=== PATIENT | male | born 1990 | race African-American/Black ===

== ENCOUNTER 2021-06-06 15:44 | Inpatient (IN) | payer OTHER ==
[2021-06-06] MEDS ORDERED: hydrOXYzine PAMOATE 25 MG CAPSULE (FP) PO PRN (17:34)
[2021-06-06] MEDS ORDERED: MENTHOL/PHENOL 1 EACH UD MM PRN (17:34)
[2021-06-06] MEDS ORDERED: IBUPROFEN 400 MG TABLET (FP) PO PRN (17:34)
[2021-06-06] MEDS ORDERED: ACETAMINOPHEN 325 MG TABLET (FP) PO PRN ×2 (17:34)
[2021-06-06] MEDS ORDERED: DICYCLOMINE HCL 10 MG CAPSULE PO PRN (17:34)
[2021-06-06] MEDS ORDERED: LOPERAMIDE HCL 2 MG CAPSULE PO PRN (17:34)
[2021-06-06] MEDS ORDERED: BISMUTH SUBSALICYLATE 524 MG/30 ML PO PRN (17:34)
[2021-06-06] MEDS ORDERED: MELATONIN 5 MG TABLETS PO PRN (17:34)
[2021-06-06] MEDS ORDERED: MAGNESIUM HYDROX 2400MG/30ML ORAL SUSPENSION 30 ML CUP PO PRN (17:34)
[2021-06-06] MEDS ORDERED: MAGNESIUM CITRATE 300 ML BOTTLE PO PRN (17:34)
[2021-06-06] MEDS ORDERED: ONDANSETRON *ODT* 4 MG TABLET SL PRN (17:34)
[2021-06-06] MEDS ORDERED: diazePAM 5 MG TABLET PO PRN (17:37)
[2021-06-06 17:45] VITALS: BMI 21.6
[2021-06-06] MEDS ORDERED: ACETAMINOPHEN 325 MG TABLET (FP) ONE (19:01)
[2021-06-06] MEDS: MAG HYDROX/AL HYDROX/SIMETH 30 ML UNIT-DOSE CUP PO PRN (20:15)
[2021-06-06] MEDS ORDERED: THIAMINE HCL 100 MG TABLET (FP) PO SCH (22:00)
[2021-06-06] MEDS: METHOCARBAMOL 500 MG TABLET PO PRN (22:27)
[2021-06-06] MEDS: diazePAM 5 MG TABLET PO SCH (22:27)
[2021-06-07] MEDS: diazePAM 5 MG TABLET PO SCH ×2 (06:04→10:35)
[2021-06-07] MEDS ORDERED: PNEUMOC 13-VAL CONJ-DIP CRM/PF 0.5 ML DISP.SYRIN IM ONE (07:00)
[2021-06-07 09:02] VITALS: TEMP 98
[2021-06-07] MEDS: METHOCARBAMOL 500 MG TABLET PO PRN (09:24)
[2021-06-07] MEDS: MAG HYDROX/AL HYDROX/SIMETH 30 ML UNIT-DOSE CUP PO PRN (09:25)
[2021-06-07 09:47] LABS: HEMATOCRIT 23.5 % (35.4-49); HEMOGLOBIN 7.7 GM/dL (11.7-16.9); MCH 25.6 pg (25.7-33.7); MCHC 32.6 g/dl (32.0-35.9); MEAN CELL VOLUME 78.3 fl (80-96); MEAN PLT VOLUME 7.3 fl (7.5-11.1); PLATELET COUNT 297 10^3/uL (134-434); WHITE BLOOD COUNT 2.4 K/mm3 (4.0-10.0)
[2021-06-07 09:48] LABS: CALCIUM 8.5 mg/dL (8.5-10.1)
[2021-06-07 09:49] LABS: ALBUMIN 3.4 g/dl (3.4-5.0); BLOOD UREA NITROGEN 11.9 mg/dL (7-18)
[2021-06-07 09:52] LABS: CREATININE 1.1 mg/dL (0.55-1.3)
[2021-06-07 09:53] LABS: TOT PROT 6.7 g/dl (6.4-8.2)
[2021-06-07 09:54] LABS: BILIRUBIN,TOTAL 0.4 mg/dL (0.2-1)
[2021-06-07] MEDS ORDERED: PRENATAL VITAMINS W/ FOLIC ACID TABLET (FP) PO SCH (10:00)
[2021-06-07 13:34] VITALS: BP 135/97; PULSE 101
[2021-06-08] MEDS ORDERED: diazePAM 5 MG TABLET PO SCH (06:00)
[2021-06-09] MEDS ORDERED: diazePAM 5 MG TABLET PO SCH (06:00)
[2021-06-10] MEDS ORDERED: diazePAM 5 MG TABLET PO ONE (06:00)
== END 2021-06-07 14:00 | disposition left against medical advice (07) | DRG 770 ==
LOC: YASAS 15:44 → Y6N 19:10
PROVIDERS: ADMIT Allergy & Immunology; ATTEND Allergy & Immunology
PROC: HZ2ZZZZ Detoxification Services for Substance Abuse Treatment (ICD-10-PCS; principal; 2021-06-06)
DX: F10.230 Alcohol dependence with withdrawal, uncomplicated (principal); F10.220 Alcohol dependence with intoxication, uncomplicated; Z21 Asymptomatic human immunodeficiency virus [HIV] infection status; Z87.19 Personal history of other diseases of the digestive system
CPT/HCPCS: 36415; 80053; 85027; 86780; 87811; C9803-CS; Q0162; U0003; U0005

== ENCOUNTER 2022-05-11 13:23 | Inpatient (IN) | payer OTHER ==
[2022-05-11 15:03] VITALS: BMI 22.3
[2022-05-11] MEDS ORDERED: BISMUTH SUBSALICYLATE 524 MG/30 ML PO PRN (16:48)
[2022-05-11] MEDS ORDERED: DICYCLOMINE HCL 10 MG CAPSULE PO PRN (16:48)
[2022-05-11] MEDS ORDERED: NALOXONE HCL (KLOXXADO) 8 MG SPRAY NS PRN (16:48)
[2022-05-11] MEDS ORDERED: MAG HYDROX/AL HYDROX/SIMETH 30 ML UNIT-DOSE CUP PO PRN (16:48)
[2022-05-11] MEDS ORDERED: MAGNESIUM HYDROX 2400MG/30ML ORAL SUSPENSION 30 ML CUP PO PRN (16:48)
[2022-05-11] MEDS ORDERED: chlordiazePOXIDE HCL 25 MG CAPSULE PO PRN (16:48)
[2022-05-11] MEDS ORDERED: BENZOCAINE/MENTHOL (CHLORASEPTIC ) LOZENGE MM PRN (16:48)
[2022-05-11] MEDS ORDERED: ACETAMINOPHEN 325 MG TABLET (FP) PO PRN ×2 (16:48)
[2022-05-11] MEDS ORDERED: IBUPROFEN 400 MG TABLET (FP) PO PRN (16:48)
[2022-05-11] MEDS ORDERED: ONDANSETRON *ODT* 4 MG TABLET SL PRN (16:48)
[2022-05-11] MEDS ORDERED: POLYETHYLENE GLYCOL (HEALTHYLAX) 3350 17 GM PACKET PO PRN (16:48)
[2022-05-11] MEDS ORDERED: LOPERAMIDE HCL 2 MG CAPSULE PO PRN (16:48)
[2022-05-11] MEDS: FOLIC ACID 1 MG TABLET (FP) PO SCH (18:00)
[2022-05-11] MEDS: chlordiazePOXIDE HCL 25 MG CAPSULE PO SCH ×2 (18:00→22:12)
[2022-05-11] MEDS: PRENATAL VITAMINS W/ FOLIC ACID TABLET (FP) PO SCH (18:00)
[2022-05-11] MEDS: THIAMINE HCL 100 MG TABLET (FP) PO SCH ×2 (18:00→22:12)
[2022-05-11] MEDS: MELATONIN 5 MG TABLETS PO SCH (22:11)
[2022-05-11] MEDS: FAMOTIDINE 20 MG TABLET PO SCH (22:11)
[2022-05-11] MEDS: levETIRAcetam 500 MG TABLET (FP) PO SCH (22:11)
[2022-05-11] MEDS: PRAZOSIN HCL 1 MG CAPSULE PO SCH (22:11)
[2022-05-11] MEDS: CHLORHEXIDINE GLUCONATE 0.12% 15ML CUP MM SCH (22:11)
[2022-05-12] MEDS: IBUPROFEN 600 MG TABLET (FP) PO PRN ×2 (05:22→13:31)
[2022-05-12] MEDS: chlordiazePOXIDE HCL 25 MG CAPSULE PO SCH ×4 (05:23→22:54)
[2022-05-12] MEDS ORDERED: PANTOPRAZOLE 40 MG TABLET PO SCH (10:00)
[2022-05-12] MEDS ORDERED: ERGOCALCIFEROL (VIT D2) 50,000 UNIT (1.25 MG) CAPSULE PO SCH (10:00)
[2022-05-12] MEDS ORDERED: PATIENT'S OWN MEDICATION (NON-FORMULARY) (Omeprazole [Omeprazole] 20 MG Tablet.Dr) PO SCH (10:00)
[2022-05-12] MEDS: levETIRAcetam 500 MG TABLET (FP) PO SCH ×2 (10:27→22:53)
[2022-05-12] MEDS: BICTEGRAV/EMTRICIT/TENOFOV (BIKTARVY) 50-200-25 MG TABLET PO SCH (10:27)
[2022-05-12] MEDS: PRENATAL VITAMINS W/ FOLIC ACID TABLET (FP) PO SCH (10:27)
[2022-05-12] MEDS: FAMOTIDINE 20 MG TABLET PO SCH ×2 (10:28→22:53)
[2022-05-12] MEDS: PANTOPRAZOLE 40 MG TABLET PO SCH (10:28)
[2022-05-12] MEDS: THIAMINE HCL 100 MG TABLET (FP) PO SCH ×2 (10:28→22:53)
[2022-05-12] MEDS: FOLIC ACID 1 MG TABLET (FP) PO SCH (10:28)
[2022-05-12] MEDS: hydrOXYzine PAMOATE 25 MG CAPSULE (FP) PO PRN (10:35)
[2022-05-12] MEDS: METHOCARBAMOL 500 MG TABLET PO PRN ×2 (10:35→22:59)
[2022-05-12] MEDS: CHLORHEXIDINE GLUCONATE 0.12% 15ML CUP MM SCH ×2 (10:53→22:53)
[2022-05-12 11:30] LABS: HEMATOCRIT 28.3 % (35.4-49); HEMOGLOBIN 8.9 GM/dL (11.7-16.9); MCHC 31.4 g/dl (32.0-35.9); MEAN CELL VOLUME 76.4 fl (80-96); MEAN PLT VOLUME 8.1 fl (7.5-11.1); PLATELET COUNT 203 10^3/uL (134-434); RDW 24.2 % (11.9-15.9); WHITE BLOOD COUNT 2.5 K/mm3 (4.0-10.0)
[2022-05-12 12:28] LABS: ALBUMIN 3.2 g/dl (3.4-5.0); BLOOD UREA NITROGEN 10.4 mg/dL (7-18); CALCIUM 8.7 mg/dL (8.5-10.1)
[2022-05-12 12:33] LABS: BILIRUBIN,TOTAL 0.4 mg/dL (0.2-1); TOT PROT 6.9 g/dl (6.4-8.2)
[2022-05-12] MEDS: HYDROCORTISONE 2.5% TOPICAL CREAM 30 GM TUBE RC SCH (14:27)
[2022-05-12] MEDS: FERROUS SO4 325 MG TABLET (FP) PO SCH (17:23)
[2022-05-12] MEDS: MELATONIN 5 MG TABLETS PO SCH (22:52)
[2022-05-12] MEDS: PRAZOSIN HCL 1 MG CAPSULE PO SCH (22:53)
[2022-05-13] MEDS: hydrOXYzine PAMOATE 25 MG CAPSULE (FP) PO PRN (00:18)
[2022-05-13] MEDS: chlordiazePOXIDE HCL 25 MG CAPSULE PO SCH ×2 (05:30→10:51)
[2022-05-13] MEDS: FERROUS SO4 325 MG TABLET (FP) PO SCH (07:33)
[2022-05-13] MEDS: PRENATAL VITAMINS W/ FOLIC ACID TABLET (FP) PO SCH (09:00)
[2022-05-13] MEDS: FOLIC ACID 1 MG TABLET (FP) PO SCH (09:01)
[2022-05-13] MEDS: BICTEGRAV/EMTRICIT/TENOFOV (BIKTARVY) 50-200-25 MG TABLET PO SCH (09:01)
[2022-05-13] MEDS: PANTOPRAZOLE 40 MG TABLET PO SCH (09:01)
[2022-05-13] MEDS: levETIRAcetam 500 MG TABLET (FP) PO SCH (09:01)
[2022-05-13] MEDS: HYDROCORTISONE 2.5% TOPICAL CREAM 30 GM TUBE RC SCH (09:01)
[2022-05-13] MEDS: FAMOTIDINE 20 MG TABLET PO SCH (09:01)
[2022-05-13] MEDS: CHLORHEXIDINE GLUCONATE 0.12% 15ML CUP MM SCH (09:01)
[2022-05-13] MEDS: THIAMINE HCL 100 MG TABLET (FP) PO SCH (09:03)
[2022-05-13 09:51] VITALS: BP 131/74; PULSE 80; RESP 18; TEMP 97.3
[2022-05-13] MEDS ORDERED: FLUoxetine HCL 20 MG CAPSULE PO SCH (10:00)
[2022-05-14] MEDS ORDERED: chlordiazePOXIDE HCL 10 MG CAPSULE PO PRN
[2022-05-14] MEDS ORDERED: chlordiazePOXIDE HCL 10 MG CAPSULE PO SCH (05:00)
[2022-05-15] MEDS ORDERED: chlordiazePOXIDE HCL 10 MG CAPSULE PO SCH (05:00)
[2022-05-16] MEDS ORDERED: chlordiazePOXIDE HCL 10 MG CAPSULE PO ONE (05:00)
== END 2022-05-13 09:06 | disposition left against medical advice (07) | DRG 770 ==
LOC: YASAS 13:23 → Y3N 17:28
PROVIDERS: ADMIT Allergy & Immunology; ATTEND Surgery
PROC: HZ2ZZZZ Detoxification Services for Substance Abuse Treatment (ICD-10-PCS; principal; 2022-05-12)
DX: F10.230 Alcohol dependence with withdrawal, uncomplicated (principal); F19.24 Other psychoactive substance dependence with psychoactive substance-induced mood disorder; F43.10 Post-traumatic stress disorder, unspecified; F32.9 Major depressive disorder, single episode, unspecified; Z21 Asymptomatic human immunodeficiency virus [HIV] infection status; D57.3 Sickle-cell trait; K64.9 Unspecified hemorrhoids; Z86.69 Personal history of other diseases of the nervous system and sense organs; Z59.01 Sheltered homelessness; Z88.8 Allergy status to other drugs, medicaments and biological substances; Z88.6 Allergy status to analgesic agent
CPT/HCPCS: 36415; 80053; 85027; 86780; 87811; C9803-CS; U0003; U0005

== ENCOUNTER 2022-06-07 16:10 | Inpatient (IN) | payer OTHER ==
[2022-06-07 16:34] VITALS: BMI 22.6
[2022-06-07] MEDS ORDERED: NALOXONE HCL (KLOXXADO) 8 MG SPRAY NS PRN (17:51)
[2022-06-07] MEDS ORDERED: BENZONATATE 200 MG CAPSULE PO PRN (17:51)
[2022-06-07] MEDS ORDERED: guaiFENesin 600 MG TABLET.ER (FP) PO PRN (17:51)
[2022-06-07] MEDS ORDERED: MAG HYDROX/AL HYDROX/SIMETH 30 ML UNIT-DOSE CUP PO PRN (17:51)
[2022-06-07] MEDS ORDERED: IBUPROFEN 400 MG TABLET (FP) PO PRN (17:51)
[2022-06-07] MEDS ORDERED: MAGNESIUM HYDROX 2400MG/30ML ORAL SUSPENSION 30 ML CUP PO PRN (17:51)
[2022-06-07] MEDS ORDERED: BENZOCAINE/MENTHOL (CHLORASEPTIC ) LOZENGE MM PRN (17:51)
[2022-06-07] MEDS ORDERED: BISMUTH SUBSALICYLATE 524 MG/30 ML PO PRN (17:51)
[2022-06-07] MEDS ORDERED: IBUPROFEN 600 MG TABLET (FP) PO PRN (17:51)
[2022-06-07] MEDS ORDERED: LOPERAMIDE HCL 2 MG CAPSULE PO PRN (17:51)
[2022-06-07] MEDS ORDERED: NICOTINE 10 MG CARTRIDGE (INHALER) IH PRN (17:51)
[2022-06-07] MEDS ORDERED: NALOXONE HCL 0.4 MG/ML VIAL IM PRN (17:51)
[2022-06-07] MEDS ORDERED: POLYETHYLENE GLYCOL (HEALTHYLAX) 3350 17 GM PACKET PO PRN (17:51)
[2022-06-07] MEDS: hydrOXYzine PAMOATE 25 MG CAPSULE (FP) PO PRN (18:59)
[2022-06-07] MEDS: DICYCLOMINE HCL 10 MG CAPSULE PO PRN (18:59)
[2022-06-07] MEDS: PRENATAL VITAMINS W/ FOLIC ACID TABLET (FP) PO SCH (19:09)
[2022-06-07] MEDS: MELATONIN 5 MG TABLETS PO SCH (22:10)
[2022-06-07] MEDS: THIAMINE HCL 100 MG TABLET (FP) PO SCH (22:10)
[2022-06-07] MEDS: NAPROXEN 500 MG TABLET PO SCH (22:10)
[2022-06-07] MEDS: METHOCARBAMOL 500 MG TABLET PO PRN (22:12)
[2022-06-08] MEDS: hydrOXYzine PAMOATE 25 MG CAPSULE (FP) PO PRN ×3 (05:32→22:38)
[2022-06-08] MEDS ORDERED: BICTEGRAV/EMTRICIT/TENOFOV (BIKTARVY) 50-200-25 MG TABLET PO SCH (10:00)
[2022-06-08] MEDS ORDERED: CHLORHEXIDINE GLUCONATE 0.12% 15ML CUP MM SCH (10:00)
[2022-06-08] MEDS: NAPROXEN 500 MG TABLET PO SCH ×2 (10:23→22:34)
[2022-06-08] MEDS: PRENATAL VITAMINS W/ FOLIC ACID TABLET (FP) PO SCH (10:23)
[2022-06-08] MEDS: LORazepam 2 MG TABLET PO SCH ×3 (10:24→22:33)
[2022-06-08] MEDS: FAMOTIDINE 20 MG TABLET PO SCH ×2 (10:24→22:34)
[2022-06-08] MEDS: PANTOPRAZOLE 40 MG TABLET PO SCH ×2 (10:24→10:25)
[2022-06-08] MEDS: levETIRAcetam 500 MG TABLET (FP) PO SCH ×2 (10:27→22:34)
[2022-06-08] MEDS: CHLORHEXIDINE GLUCONATE 0.12% 15ML CUP MM SCH ×2 (12:12→22:34)
[2022-06-08] MEDS: BICTEGRAV/EMTRICIT/TENOFOV (BIKTARVY) 50-200-25 MG TABLET PO SCH (12:13)
[2022-06-08] MEDS: SUCRALFATE 1 GM TABLET (FP) PO SCH ×2 (12:13→17:47)
[2022-06-08] MEDS: ONDANSETRON *ODT* 4 MG TABLET SL PRN (21:01)
[2022-06-08] MEDS ORDERED: PRAZOSIN HCL 2 MG CAPSULE PO SCH (22:00)
[2022-06-08] MEDS: THIAMINE HCL 100 MG TABLET (FP) PO SCH (22:34)
[2022-06-08] MEDS: MELATONIN 5 MG TABLETS PO SCH (22:34)
[2022-06-09] MEDS: LORazepam 1 MG TABLET PO PRN (01:26)
[2022-06-09] MEDS: METHOCARBAMOL 500 MG TABLET PO PRN ×3 (01:26→22:32)
[2022-06-09] MEDS: LORazepam 2 MG TABLET PO SCH ×4 (05:16→22:32)
[2022-06-09] MEDS: BICTEGRAV/EMTRICIT/TENOFOV (BIKTARVY) 50-200-25 MG TABLET PO SCH (07:17)
[2022-06-09] MEDS: SUCRALFATE 1 GM TABLET (FP) PO SCH ×3 (07:18→17:17)
[2022-06-09] MEDS: NAPROXEN 500 MG TABLET PO SCH (10:23)
[2022-06-09] MEDS: PRENATAL VITAMINS W/ FOLIC ACID TABLET (FP) PO SCH (10:23)
[2022-06-09] MEDS: FAMOTIDINE 20 MG TABLET PO SCH (10:23)
[2022-06-09] MEDS: levETIRAcetam 500 MG TABLET (FP) PO SCH ×2 (10:23→22:29)
[2022-06-09] MEDS: PANTOPRAZOLE 40 MG TABLET PO SCH ×2 (10:24→10:26)
[2022-06-09] MEDS: FLUoxetine HCL 20 MG CAPSULE PO SCH (10:25)
[2022-06-09] MEDS: ONDANSETRON *ODT* 4 MG TABLET SL PRN (10:27)
[2022-06-09] MEDS: hydrOXYzine PAMOATE 25 MG CAPSULE (FP) PO PRN ×2 (10:27→22:32)
[2022-06-09] MEDS: CHLORHEXIDINE GLUCONATE 0.12% 15ML CUP MM SCH ×2 (10:28→22:36)
[2022-06-09] MEDS ORDERED: NAPROXEN 500 MG TABLET PO ONE (16:15)
[2022-06-09] MEDS: MELATONIN 5 MG TABLETS PO SCH (22:29)
[2022-06-09] MEDS: PRAZOSIN HCL 1 MG CAPSULE PO SCH (22:30)
[2022-06-09] MEDS: THIAMINE HCL 100 MG TABLET (FP) PO SCH (22:30)
[2022-06-10] MEDS: LORazepam 1 MG TABLET PO PRN (02:09)
[2022-06-10] MEDS: LORazepam 1 MG TABLET PO SCH ×4 (05:54→22:12)
[2022-06-10] MEDS: SUCRALFATE 1 GM TABLET (FP) PO SCH ×3 (07:30→16:31)
[2022-06-10] MEDS: BICTEGRAV/EMTRICIT/TENOFOV (BIKTARVY) 50-200-25 MG TABLET PO SCH (07:31)
[2022-06-10] MEDS: FLUoxetine HCL 20 MG CAPSULE PO SCH (10:18)
[2022-06-10] MEDS: levETIRAcetam 500 MG TABLET (FP) PO SCH ×2 (10:18→22:12)
[2022-06-10] MEDS: PRENATAL VITAMINS W/ FOLIC ACID TABLET (FP) PO SCH (10:18)
[2022-06-10] MEDS: PANTOPRAZOLE 40 MG TABLET PO SCH (10:18)
[2022-06-10] MEDS: CHLORHEXIDINE GLUCONATE 0.12% 15ML CUP MM SCH ×2 (10:18→22:13)
[2022-06-10] MEDS: NAPROXEN 500 MG TABLET PO SCH ×2 (10:18→22:12)
[2022-06-10] MEDS: hydrOXYzine PAMOATE 25 MG CAPSULE (FP) PO PRN ×2 (10:21→18:47)
[2022-06-10] MEDS: METHOCARBAMOL 500 MG TABLET PO PRN (17:39)
[2022-06-10] MEDS: DICYCLOMINE HCL 10 MG CAPSULE PO PRN (17:43)
[2022-06-10] MEDS: THIAMINE HCL 100 MG TABLET (FP) PO SCH (22:12)
[2022-06-10] MEDS: MELATONIN 5 MG TABLETS PO SCH (22:12)
[2022-06-10] MEDS: PRAZOSIN HCL 1 MG CAPSULE PO SCH (22:12)
[2022-06-11] MEDS ORDERED: LORazepam 0.5 MG TABLET PO PRN
[2022-06-11] MEDS: LORazepam 0.5 MG TABLET PO SCH ×2 (05:39→10:21)
[2022-06-11] MEDS: hydrOXYzine PAMOATE 25 MG CAPSULE (FP) PO PRN (05:40)
[2022-06-11 06:41] VITALS: TEMP 98.2
[2022-06-11] MEDS: SUCRALFATE 1 GM TABLET (FP) PO SCH ×2 (07:12→11:53)
[2022-06-11] MEDS: BICTEGRAV/EMTRICIT/TENOFOV (BIKTARVY) 50-200-25 MG TABLET PO SCH (07:12)
[2022-06-11 09:42] VITALS: BP 123/82; PULSE 68; RESP 18
[2022-06-11] MEDS: levETIRAcetam 500 MG TABLET (FP) PO SCH (10:21)
[2022-06-11] MEDS: FLUoxetine HCL 20 MG CAPSULE PO SCH (10:21)
[2022-06-11] MEDS: NAPROXEN 500 MG TABLET PO SCH (10:21)
[2022-06-11] MEDS: PANTOPRAZOLE 40 MG TABLET PO SCH (10:22)
[2022-06-11] MEDS: PRENATAL VITAMINS W/ FOLIC ACID TABLET (FP) PO SCH (10:22)
[2022-06-11] MEDS: CHLORHEXIDINE GLUCONATE 0.12% 15ML CUP MM SCH (10:22)
[2022-06-11] MEDS ORDERED: cloNIDine HCL 0.1 MG TABLET PO PRN (11:40)
[2022-06-12] MEDS ORDERED: LORazepam 0.5 MG TABLET PO ONE (05:00)
== END 2022-06-11 11:58 | disposition left against medical advice (07) | DRG 770 ==
LOC: YASAS 16:10 → Y3N 18:11
PROVIDERS: ADMIT Allergy & Immunology; ATTEND Surgery
PROC: HZ2ZZZZ Detoxification Services for Substance Abuse Treatment (ICD-10-PCS; principal; 2022-06-07)
DX: F10.230 Alcohol dependence with withdrawal, uncomplicated (principal); F19.24 Other psychoactive substance dependence with psychoactive substance-induced mood disorder; F43.10 Post-traumatic stress disorder, unspecified; Z21 Asymptomatic human immunodeficiency virus [HIV] infection status; G40.509 Epileptic seizures related to external causes, not intractable, without status epilepticus; K21.9 Gastro-esophageal reflux disease without esophagitis; Z87.81 Personal history of (healed) traumatic fracture; Z88.8 Allergy status to other drugs, medicaments and biological substances; Z88.6 Allergy status to analgesic agent
CPT/HCPCS: 87811; C9803-CS; Q0162; U0003; U0005

== ENCOUNTER 2022-09-15 19:53 | Inpatient (IN) | payer OTHER ==
[2022-09-15 20:17] VITALS: BMI 22.4
[2022-09-15] MEDS ORDERED: BENZONATATE 200 MG CAPSULE PO PRN (21:29)
[2022-09-15] MEDS ORDERED: BISMUTH SUBSALICYLATE 524 MG/30 ML PO PRN (21:29)
[2022-09-15] MEDS ORDERED: MAG HYDROX/AL HYDROX/SIMETH 30 ML UNIT-DOSE CUP PO PRN (21:29)
[2022-09-15] MEDS ORDERED: LOPERAMIDE HCL 2 MG CAPSULE PO PRN (21:29)
[2022-09-15] MEDS ORDERED: guaiFENesin 600 MG TABLET.ER (FP) PO PRN (21:29)
[2022-09-15] MEDS ORDERED: chlordiazePOXIDE HCL 25 MG CAPSULE PO PRN (21:29)
[2022-09-15] MEDS ORDERED: POLYETHYLENE GLYCOL (HEALTHYLAX) 3350 17 GM PACKET PO PRN (21:29)
[2022-09-15] MEDS ORDERED: DICYCLOMINE HCL 10 MG CAPSULE PO PRN (21:29)
[2022-09-15] MEDS ORDERED: ACETAMINOPHEN 325 MG TABLET (FP) PO PRN (21:29)
[2022-09-15] MEDS ORDERED: IBUPROFEN 400 MG TABLET (FP) PO PRN (21:29)
[2022-09-15] MEDS ORDERED: IBUPROFEN 600 MG TABLET (FP) PO PRN (21:29)
[2022-09-15] MEDS ORDERED: METHOCARBAMOL 500 MG TABLET PO PRN (21:29)
[2022-09-15] MEDS ORDERED: MAGNESIUM HYDROX 2400MG/30ML ORAL SUSPENSION 30 ML CUP PO PRN (21:29)
[2022-09-15] MEDS ORDERED: ONDANSETRON *ODT* 4 MG TABLET SL PRN (21:29)
[2022-09-15] MEDS ORDERED: NALOXONE HCL 0.4 MG/ML VIAL IM PRN (21:29)
[2022-09-15] MEDS ORDERED: NALOXONE HCL (KLOXXADO) 8 MG SPRAY NS PRN (21:29)
[2022-09-15] MEDS ORDERED: MELATONIN 5 MG TABLETS PO SCH (22:00)
[2022-09-15] MEDS ORDERED: chlordiazePOXIDE HCL 25 MG CAPSULE ONE (22:12)
[2022-09-15] MEDS: THIAMINE HCL 100 MG TABLET (FP) PO SCH (22:19)
[2022-09-15] MEDS: chlordiazePOXIDE HCL 25 MG CAPSULE PO SCH (22:19)
[2022-09-16] MEDS: chlordiazePOXIDE HCL 25 MG CAPSULE PO SCH ×4 (05:36→22:45)
[2022-09-16] MEDS: FERROUS SO4 325 MG TABLET (FP) PO SCH ×3 (07:16→17:52)
[2022-09-16] MEDS ORDERED: PATIENT'S OWN MEDICATION (NON-FORMULARY) (Omeprazole [Omeprazole] 20 MG Tablet.Dr) PO SCH (10:00)
[2022-09-16] MEDS ORDERED: THIAMINE HCL 100 MG TABLET (FP) PO SCH (10:00)
[2022-09-16] MEDS: CALAMINE 8% TOPICAL LOTION 177 ML BOTTLE TP SCH ×4 (10:36→22:50)
[2022-09-16] MEDS: levETIRAcetam 250 MG TABLET PO SCH ×2 (10:37→22:44)
[2022-09-16] MEDS: BICTEGRAV/EMTRICIT/TENOFOV (BIKTARVY) 50-200-25 MG TABLET PO SCH (10:37)
[2022-09-16] MEDS: FOLIC ACID 1 MG TABLET (FP) PO SCH (10:37)
[2022-09-16] MEDS: PRENATAL VITAMINS W/ FOLIC ACID TABLET (FP) PO SCH (10:37)
[2022-09-16] MEDS: CHLORHEXIDINE GLUCONATE 0.12% 15ML CUP MM SCH ×2 (10:38→22:50)
[2022-09-16] MEDS: SUCRALFATE 1 GM TABLET (FP) PO SCH ×3 (10:38→17:52)
[2022-09-16] MEDS: AMOXICILLIN 250 MG CAPSULE PO SCH ×2 (10:38→22:44)
[2022-09-16] MEDS: MULTIVITAMINS THER W-MINERALS COMBO TABLET (FP) PO SCH (10:39)
[2022-09-16] MEDS: BENZOCAINE/MENTHOL (CHLORASEPTIC ) LOZENGE MM PRN ×3 (10:46→22:52)
[2022-09-16] MEDS: HYDROCORTISONE 2.5% TOPICAL CREAM 30 GM TUBE TP SCH ×2 (10:51→22:50)
[2022-09-16] MEDS: FAMOTIDINE 20 MG TABLET PO SCH ×2 (13:42→22:44)
[2022-09-16] MEDS: FLUoxetine HCL 20 MG CAPSULE PO SCH (13:43)
[2022-09-16] MEDS ORDERED: BENZOCAINE 20 % GEL TUBE MM PRN (20:43)
[2022-09-16] MEDS ORDERED: PRAZOSIN HCL 1 MG CAPSULE PO SCH ×2 (22:00)
[2022-09-16] MEDS ORDERED: PATIENT'S OWN MEDICATION (NON-FORMULARY) (Prazosin Hcl 2 MG Capsule) PO SCH (22:00)
[2022-09-16] MEDS ORDERED: QUEtiapine FUMARATE 200 MG TABLET PO SCH (22:00)
[2022-09-16] MEDS: THIAMINE HCL 100 MG TABLET (FP) PO SCH (22:45)
[2022-09-17] MEDS: chlordiazePOXIDE HCL 25 MG CAPSULE PO SCH ×2 (05:32→10:59)
[2022-09-17] MEDS: BENZOCAINE/MENTHOL (CHLORASEPTIC ) LOZENGE MM PRN (05:33)
[2022-09-17] MEDS: FERROUS SO4 325 MG TABLET (FP) PO SCH ×2 (07:33→11:13)
[2022-09-17] MEDS: SUCRALFATE 1 GM TABLET (FP) PO SCH ×2 (07:33→11:13)
[2022-09-17 09:39] VITALS: RESP 18
[2022-09-17] MEDS: PANTOPRAZOLE 40 MG TABLET PO SCH ×2 (09:56→10:53)
[2022-09-17] MEDS ORDERED: ERGOCALCIFEROL (VIT D2) 50,000 UNIT (1.25 MG) CAPSULE PO SCH (10:00)
[2022-09-17] MEDS ORDERED: NALTREXONE HCL 50 MG TABLET PO SCH (10:00)
[2022-09-17] MEDS: levETIRAcetam 250 MG TABLET PO SCH (10:53)
[2022-09-17] MEDS: FOLIC ACID 1 MG TABLET (FP) PO SCH (10:53)
[2022-09-17] MEDS: FLUoxetine HCL 20 MG CAPSULE PO SCH (10:53)
[2022-09-17] MEDS: FAMOTIDINE 20 MG TABLET PO SCH (10:53)
[2022-09-17] MEDS: AMOXICILLIN 250 MG CAPSULE PO SCH (10:55)
[2022-09-17] MEDS: BICTEGRAV/EMTRICIT/TENOFOV (BIKTARVY) 50-200-25 MG TABLET PO SCH (10:56)
[2022-09-17] MEDS: HYDROCORTISONE 2.5% TOPICAL CREAM 30 GM TUBE TP SCH (10:57)
[2022-09-17] MEDS: PRENATAL VITAMINS W/ FOLIC ACID TABLET (FP) PO SCH (10:58)
[2022-09-17] MEDS: MULTIVITAMINS THER W-MINERALS COMBO TABLET (FP) PO SCH (10:58)
[2022-09-17] MEDS: CALAMINE 8% TOPICAL LOTION 177 ML BOTTLE TP SCH ×2 (11:00→14:01)
[2022-09-17 13:32] VITALS: BP 96/60; PULSE 109; TEMP 97.3
[2022-09-17] MEDS ORDERED: HYDROCORTISONE 0.5% TOPICAL CREAM 30 GM TUBE TP SCH (16:00)
[2022-09-18] MEDS ORDERED: chlordiazePOXIDE HCL 10 MG CAPSULE PO PRN
[2022-09-18] MEDS ORDERED: chlordiazePOXIDE HCL 10 MG CAPSULE PO SCH (05:00)
[2022-09-19] MEDS ORDERED: chlordiazePOXIDE HCL 10 MG CAPSULE PO SCH (05:00)
[2022-09-20] MEDS ORDERED: chlordiazePOXIDE HCL 10 MG CAPSULE PO ONE (05:00)
== END 2022-09-17 15:43 | disposition left against medical advice (07) | DRG 770 ==
LOC: YASAS 19:53 → Y3N 22:08
PROVIDERS: ADMIT Allergy & Immunology; ATTEND Surgery
PROC: HZ2ZZZZ Detoxification Services for Substance Abuse Treatment (ICD-10-PCS; principal; 2022-09-15)
DX: F10.230 Alcohol dependence with withdrawal, uncomplicated (principal); F19.282 Other psychoactive substance dependence with psychoactive substance-induced sleep disorder; F43.10 Post-traumatic stress disorder, unspecified; F41.9 Anxiety disorder, unspecified; F32.A Depression, unspecified; B20 Human immunodeficiency virus [HIV] disease; D57.3 Sickle-cell trait; K08.89 Other specified disorders of teeth and supporting structures; Z62.810 Personal history of physical and sexual abuse in childhood; Z86.59 Personal history of other mental and behavioral disorders; Z87.891 Personal history of nicotine dependence; Z79.899 Other long term (current) drug therapy; Z88.6 Allergy status to analgesic agent; Z88.8 Allergy status to other drugs, medicaments and biological substances
CPT/HCPCS: 26055; 87635; 87811

== ENCOUNTER 2022-09-25 17:32 | Inpatient (IN) | payer OTHER ==
[2022-09-25 18:07] VITALS: BMI 21.8
[2022-09-25] MEDS ORDERED: NALOXONE HCL (KLOXXADO) 8 MG SPRAY NS PRN (21:40)
[2022-09-25] MEDS ORDERED: BENZOCAINE/MENTHOL (CHLORASEPTIC ) LOZENGE MM PRN (21:40)
[2022-09-25] MEDS ORDERED: MAGNESIUM HYDROX 2400MG/30ML ORAL SUSPENSION 30 ML CUP PO PRN (21:40)
[2022-09-25] MEDS ORDERED: BENZONATATE 200 MG CAPSULE PO PRN (21:40)
[2022-09-25] MEDS ORDERED: ONDANSETRON *ODT* 4 MG TABLET SL PRN (21:40)
[2022-09-25] MEDS ORDERED: guaiFENesin 600 MG TABLET.ER (FP) PO PRN (21:40)
[2022-09-25] MEDS ORDERED: MAG HYDROX/AL HYDROX/SIMETH 30 ML UNIT-DOSE CUP PO PRN (21:40)
[2022-09-25] MEDS ORDERED: POLYETHYLENE GLYCOL (HEALTHYLAX) 3350 17 GM PACKET PO PRN (21:40)
[2022-09-25] MEDS ORDERED: NALOXONE HCL 0.4 MG/ML VIAL IM PRN (21:40)
[2022-09-25] MEDS ORDERED: DICYCLOMINE HCL 10 MG CAPSULE PO PRN (21:40)
[2022-09-25] MEDS ORDERED: LOPERAMIDE HCL 2 MG CAPSULE PO PRN (21:40)
[2022-09-25] MEDS: METHOCARBAMOL 500 MG TABLET PO PRN (23:36)
[2022-09-25] MEDS: MELATONIN 5 MG TABLETS PO SCH (23:36)
[2022-09-25] MEDS: THIAMINE HCL 100 MG TABLET (FP) PO SCH (23:36)
[2022-09-26] MEDS ORDERED: chlordiazePOXIDE HCL 25 MG CAPSULE PO PRN (09:53)
[2022-09-26] MEDS: PRENATAL VITAMINS W/ FOLIC ACID TABLET (FP) PO SCH (10:21)
[2022-09-26] MEDS: levETIRAcetam 250 MG TABLET PO SCH ×2 (10:21→22:17)
[2022-09-26] MEDS: chlordiazePOXIDE HCL 25 MG CAPSULE PO SCH ×3 (10:22→22:18)
[2022-09-26 12:17] LABS: HEMATOCRIT 36.5 % (35.4-49); HEMOGLOBIN 11.7 GM/dL (11.7-16.9); MCH 27.8 pg (25.7-33.7); MEAN CELL VOLUME 86.9 fl (80-96); MEAN PLT VOLUME 8.6 fl (7.5-11.1); PLATELET COUNT 224 10^3/uL (134-434); RDW 21.4 % (11.9-15.9); WHITE BLOOD COUNT 3.1 K/mm3 (4.0-10.0)
[2022-09-26 12:34] LABS: ALBUMIN 3.4 g/dl (3.4-5.0); CALCIUM 9.1 mg/dL (8.5-10.1)
[2022-09-26 12:39] LABS: BILIRUBIN,TOTAL 0.6 mg/dL (0.2-1); TOT PROT 7.3 g/dl (6.4-8.2)
[2022-09-26] MEDS: METHOCARBAMOL 500 MG TABLET PO PRN (15:31)
[2022-09-26 21:13] VITALS: RESP 16
[2022-09-26] MEDS ORDERED: PRAZOSIN HCL 1 MG CAPSULE PO SCH (22:00)
[2022-09-26] MEDS: THIAMINE HCL 100 MG TABLET (FP) PO SCH (22:17)
[2022-09-26] MEDS: MELATONIN 5 MG TABLETS PO SCH (22:17)
[2022-09-26] MEDS: HYDROCORTISONE 2.5% TOPICAL CREAM 30 GM TUBE RC SCH (22:20)
[2022-09-27] MEDS: chlordiazePOXIDE HCL 25 MG CAPSULE PO SCH ×2 (05:52→11:13)
[2022-09-27] MEDS ORDERED: BICTEGRAV/EMTRICIT/TENOFOV (BIKTARVY) 50-200-25 MG TABLET PO SCH (08:00)
[2022-09-27 09:13] VITALS: BP 105/65; PULSE 92; TEMP 98
[2022-09-27] MEDS ORDERED: PANTOPRAZOLE 40 MG TABLET PO SCH (10:00)
[2022-09-27] MEDS ORDERED: FLUoxetine HCL 20 MG CAPSULE PO SCH (10:00)
[2022-09-27] MEDS ORDERED: ERGOCALCIFEROL (VIT D2) 50,000 UNIT (1.25 MG) CAPSULE PO SCH ×2 (10:00)
[2022-09-27] MEDS ORDERED: TOLNAFTATE 1% CREAM 15 GM TUBE TP SCH (10:00)
[2022-09-27] MEDS: PRENATAL VITAMINS W/ FOLIC ACID TABLET (FP) PO SCH (11:11)
[2022-09-27] MEDS: levETIRAcetam 250 MG TABLET PO SCH (11:12)
[2022-09-27] MEDS: HYDROCORTISONE 2.5% TOPICAL CREAM 30 GM TUBE RC SCH (11:15)
[2022-09-27 12:30] LABS: POTASSIUM 3.7 mmol/L (3.5-5.1)
[2022-09-27 12:33] LABS: BLOOD UREA NITROGEN 9.6 mg/dL (7-18); CALCIUM 9.2 mg/dL (8.5-10.1)
[2022-09-27 12:36] LABS: CREATININE 1.1 mg/dL (0.55-1.3)
[2022-09-28] MEDS ORDERED: chlordiazePOXIDE HCL 25 MG CAPSULE PO SCH (05:00)
[2022-09-29] MEDS ORDERED: chlordiazePOXIDE HCL 10 MG CAPSULE PO PRN
[2022-09-29] MEDS ORDERED: chlordiazePOXIDE HCL 10 MG CAPSULE PO SCH (05:00)
[2022-09-30] MEDS ORDERED: chlordiazePOXIDE HCL 10 MG CAPSULE PO SCH (05:00)
[2022-10-01] MEDS ORDERED: chlordiazePOXIDE HCL 10 MG CAPSULE PO ONE (05:00)
== END 2022-09-27 11:22 | disposition left against medical advice (07) | DRG 770 ==
LOC: YASAS 17:32 → Y3N 22:31
PROVIDERS: ADMIT Allergy & Immunology; ATTEND Surgery
PROC: HZ2ZZZZ Detoxification Services for Substance Abuse Treatment (ICD-10-PCS; principal; 2022-09-25)
DX: F10.230 Alcohol dependence with withdrawal, uncomplicated (principal); F19.24 Other psychoactive substance dependence with psychoactive substance-induced mood disorder; F32.A Depression, unspecified; F43.10 Post-traumatic stress disorder, unspecified; Z21 Asymptomatic human immunodeficiency virus [HIV] infection status; G40.909 Epilepsy, unspecified, not intractable, without status epilepticus; G47.00 Insomnia, unspecified; K21.9 Gastro-esophageal reflux disease without esophagitis; B36.0 Pityriasis versicolor; Z87.891 Personal history of nicotine dependence; Z88.8 Allergy status to other drugs, medicaments and biological substances; Z88.6 Allergy status to analgesic agent; Z87.19 Personal history of other diseases of the digestive system
CPT/HCPCS: 36415; 80048; 80053; 82962; 83036; 85027; 86780; 87635; Q0162

== ENCOUNTER 2023-01-18 14:27 | Inpatient (IN) | payer OTHER ==
[2023-01-18 18:00] VITALS: BMI 22.9
[2023-01-18] MEDS ORDERED: BENZONATATE 200 MG CAPSULE PO PRN (19:35)
[2023-01-18] MEDS ORDERED: AMMONIUM LACTATE 12% LOTION 225 GM BOTTLE TP PRN (19:35)
[2023-01-18] MEDS ORDERED: IBUPROFEN 400 MG TABLET (FP) PO PRN (19:35)
[2023-01-18] MEDS ORDERED: POLYETHYLENE GLYCOL (HEALTHYLAX) 3350 17 GM PACKET PO PRN (19:35)
[2023-01-18] MEDS ORDERED: NALOXONE HCL (KLOXXADO) 8 MG SPRAY NS PRN (19:35)
[2023-01-18] MEDS ORDERED: COLLOIDAL OATMEAL 1 BAR EACH TP PRN (19:35)
[2023-01-18] MEDS ORDERED: IBUPROFEN 600 MG TABLET (FP) PO PRN (19:35)
[2023-01-18] MEDS ORDERED: ACETAMINOPHEN 325 MG TABLET (FP) PO PRN (19:35)
[2023-01-18] MEDS ORDERED: guaiFENesin 600 MG TABLET.ER (FP) PO PRN (19:35)
[2023-01-18] MEDS ORDERED: MAGNESIUM HYDROX 2400MG/30ML ORAL SUSPENSION 30 ML CUP PO PRN (19:35)
[2023-01-18] MEDS ORDERED: LOPERAMIDE HCL 2 MG CAPSULE PO PRN (19:35)
[2023-01-18] MEDS ORDERED: NICOTINE POLACRILEX 4 MG GUM BUC PRN (19:35)
[2023-01-18] MEDS ORDERED: NALOXONE HCL 0.4 MG/ML VIAL IM PRN (19:35)
[2023-01-18] MEDS ORDERED: BENZOCAINE/MENTHOL (CHLORASEPTIC ) LOZENGE MM PRN (19:35)
[2023-01-18] MEDS ORDERED: PRAZOSIN HCL 1 MG CAPSULE PO ONE (22:00)
[2023-01-18] MEDS ORDERED: MELATONIN 5 MG TABLETS PO SCH (22:00)
[2023-01-18] MEDS ORDERED: TUBERCULIN PPD 5 TU/0.1ML SYRINGE (IN PATIENT USE ONLY) ID ONE (23:36)
[2023-01-19] MEDS ORDERED: TUBERCULIN PPD 5 TU/0.1ML VIAL ID ONE ×2 (00:46→09:18)
[2023-01-19] MEDS: THIAMINE HCL 100 MG TABLET (FP) PO SCH ×2 (00:49→21:31)
[2023-01-19] MEDS: FERROUS SO4 325 MG TABLET (FP) PO SCH ×4 (00:49→21:29)
[2023-01-19] MEDS: levETIRAcetam 500 MG TABLET (FP) PO SCH ×3 (00:52→21:29)
[2023-01-19] MEDS: FAMOTIDINE 20 MG TABLET PO SCH ×3 (00:55→21:29)
[2023-01-19] MEDS ORDERED: PRAZOSIN HCL 1 MG CAPSULE PO ONE (01:15)
[2023-01-19] MEDS: hydrOXYzine PAMOATE 25 MG CAPSULE (FP) PO PRN ×2 (06:34→15:39)
[2023-01-19] MEDS: SUCRALFATE 1 GM TABLET (FP) PO SCH ×4 (09:10→17:01)
[2023-01-19] MEDS: BICTEGRAV/EMTRICIT/TENOFOV (BIKTARVY) 50-200-25 MG TABLET PO SCH (10:21)
[2023-01-19] MEDS: PRENATAL VITAMINS W/ FOLIC ACID TABLET (FP) PO SCH (10:21)
[2023-01-19 11:02] LABS: HEMATOCRIT 31.7 % (35.4-49); HEMOGLOBIN 10.2 GM/dL (11.7-16.9); MCH 25.1 pg (25.7-33.7); MCHC 32.1 g/dl (32.0-35.9); MEAN CELL VOLUME 78.1 fl (80-96); MEAN PLT VOLUME 7.8 fl (7.5-11.1); PLATELET COUNT 278 10^3/uL (134-434); RBC 4.06 M/mm3 (4.00-5.60); RDW 22.9 % (11.9-15.9); WHITE BLOOD COUNT 3.9 K/mm3 (4.0-10.0)
[2023-01-19 11:51] LABS: CHLORIDE 105 mmol/L (98-107); SODIUM 139 mmol/L (136-145)
[2023-01-19 12:20] LABS: CALCIUM 8.6 mg/dL (8.5-10.1)
[2023-01-19 12:21] LABS: ALBUMIN 3.3 g/dl (3.4-5.0); ANION GAP 6 mmol/L (4-13); BLOOD UREA NITROGEN 16.1 mg/dL (7-18); CO2 29 mmol/L (21-32); GLUCOSE,RANDOM 137 mg/dL (74-106)
[2023-01-19 12:23] LABS: CREATININE 1.2 mg/dL (0.55-1.3); SGPT/ALT 15 U/L (13-61)
[2023-01-19 12:24] LABS: SGOT/AST 14 U/L (15-37)
[2023-01-19 12:25] LABS: BILIRUBIN,TOTAL 0.3 mg/dL (0.2-1); TOT PROT 7.2 g/dl (6.4-8.2)
[2023-01-19 12:26] LABS: ALK PHOS 93 U/L (45-117)
[2023-01-19] MEDS: METHOCARBAMOL 500 MG TABLET PO PRN (15:39)
[2023-01-19] MEDS ORDERED: ERGOCALCIFEROL (VIT D2) 50,000 UNIT (1.25 MG) CAPSULE PO SCH (15:45)
[2023-01-19 17:27] LABS: PH,URINE 7.5 (5.0-8.0); URINE APPEARANCE CLEAR; URINE BILIRUBIN NEGATIVE (NEGATIVE); URINE COLOR YELLOW; URINE GLUCOSE (UA) NEGATIVE (NEGATIVE); URINE KETONE NEGATIVE (NEGATIVE); URINE LEUK ESTERASE NEGATIVE (NEGATIVE); URINE NITRITE NEGATIVE (NEGATIVE); URINE PROTEIN NEGATIVE (NEGATIVE); URINE UROBILINOGEN 0.2 mg/dL (0.2-1.0)
[2023-01-19 20:27] LABS: SYPHILIS W/ RPR CONF EQUIVOCAL (NONREACTIVE)
[2023-01-19] MEDS: CHLORHEXIDINE GLUCONATE 118 ML MOUTHWASH MM SCH (21:29)
[2023-01-19] MEDS: DIVALPROEX SODIUM 500 MG TABLET E.C. PO SCH (21:30)
[2023-01-19] MEDS: PRAZOSIN HCL 1 MG CAPSULE PO SCH (21:30)
[2023-01-19] MEDS ORDERED: PRAZOSIN HCL 1 MG CAPSULE PO SCH (22:00)
[2023-01-19] MEDS ORDERED: METHYL SALICYLATE/MENTHOL OINT 30 GM TUBE TP SCH (22:00)
[2023-01-20] MEDS: FERROUS SO4 325 MG TABLET (FP) PO SCH ×3 (06:32→21:26)
[2023-01-20] MEDS: hydrOXYzine PAMOATE 25 MG CAPSULE (FP) PO PRN (06:32)
[2023-01-20] MEDS: SUCRALFATE 1 GM TABLET (FP) PO SCH ×3 (07:10→17:21)
[2023-01-20] MEDS: BICTEGRAV/EMTRICIT/TENOFOV (BIKTARVY) 50-200-25 MG TABLET PO SCH (09:48)
[2023-01-20] MEDS: PRENATAL VITAMINS W/ FOLIC ACID TABLET (FP) PO SCH (09:49)
[2023-01-20] MEDS: FAMOTIDINE 20 MG TABLET PO SCH ×2 (09:49→21:26)
[2023-01-20] MEDS: levETIRAcetam 500 MG TABLET (FP) PO SCH ×2 (09:49→21:26)
[2023-01-20] MEDS: DIVALPROEX SODIUM 250 MG TABLET E.C. PO SCH (09:53)
[2023-01-20] MEDS: FLUoxetine HCL 20 MG CAPSULE PO SCH (09:55)
[2023-01-20] MEDS: CHLORHEXIDINE GLUCONATE 118 ML MOUTHWASH MM SCH ×2 (09:56→21:58)
[2023-01-20] MEDS: METHOCARBAMOL 500 MG TABLET PO PRN (12:10)
[2023-01-20] MEDS: LACTULOSE 20 GM/30 ML UDC (FOR ORAL USE ONLY) PO SCH ×2 (13:54→21:27)
[2023-01-20] MEDS: ONDANSETRON *ODT* 4 MG TABLET SL PRN (17:51)
[2023-01-20] MEDS: DIVALPROEX SODIUM 500 MG TABLET E.C. PO SCH (21:26)
[2023-01-20] MEDS: THIAMINE HCL 100 MG TABLET (FP) PO SCH (21:26)
[2023-01-20] MEDS: PRAZOSIN HCL 1 MG CAPSULE PO SCH (21:27)
[2023-01-20] MEDS: QUEtiapine FUMARATE 200 MG TABLET PO SCH (21:30)
[2023-01-21] MEDS: LACTULOSE 20 GM/30 ML UDC (FOR ORAL USE ONLY) PO SCH ×3 (06:44→21:34)
[2023-01-21] MEDS: hydrOXYzine PAMOATE 25 MG CAPSULE (FP) PO PRN ×2 (06:45→17:44)
[2023-01-21] MEDS: FERROUS SO4 325 MG TABLET (FP) PO SCH ×3 (06:45→21:36)
[2023-01-21] MEDS: SUCRALFATE 1 GM TABLET (FP) PO SCH ×3 (07:15→17:03)
[2023-01-21] MEDS: ONDANSETRON *ODT* 4 MG TABLET SL PRN (09:24)
[2023-01-21] MEDS: FLUoxetine HCL 20 MG CAPSULE PO SCH (10:17)
[2023-01-21] MEDS: DIVALPROEX SODIUM 250 MG TABLET E.C. PO SCH (10:17)
[2023-01-21] MEDS: CHLORHEXIDINE GLUCONATE 118 ML MOUTHWASH MM SCH ×2 (10:18→21:36)
[2023-01-21] MEDS: FAMOTIDINE 20 MG TABLET PO SCH ×2 (10:18→21:36)
[2023-01-21] MEDS: BICTEGRAV/EMTRICIT/TENOFOV (BIKTARVY) 50-200-25 MG TABLET PO SCH (10:18)
[2023-01-21] MEDS: levETIRAcetam 500 MG TABLET (FP) PO SCH ×2 (10:18→21:34)
[2023-01-21] MEDS: PRENATAL VITAMINS W/ FOLIC ACID TABLET (FP) PO SCH (10:19)
[2023-01-21] MEDS: METHOCARBAMOL 500 MG TABLET PO PRN ×2 (13:30→21:36)
[2023-01-21] MEDS: DIVALPROEX SODIUM 500 MG TABLET E.C. PO SCH (21:35)
[2023-01-21] MEDS: QUEtiapine FUMARATE 200 MG TABLET PO SCH (21:35)
[2023-01-21] MEDS: PRAZOSIN HCL 1 MG CAPSULE PO SCH (21:35)
[2023-01-21] MEDS: THIAMINE HCL 100 MG TABLET (FP) PO SCH (21:35)
[2023-01-22] MEDS: FERROUS SO4 325 MG TABLET (FP) PO SCH ×3 (06:45→21:29)
[2023-01-22] MEDS: LACTULOSE 20 GM/30 ML UDC (FOR ORAL USE ONLY) PO SCH ×3 (06:45→21:30)
[2023-01-22] MEDS: SUCRALFATE 1 GM TABLET (FP) PO SCH ×3 (07:17→16:45)
[2023-01-22] MEDS: PRENATAL VITAMINS W/ FOLIC ACID TABLET (FP) PO SCH (10:17)
[2023-01-22] MEDS: CHLORHEXIDINE GLUCONATE 118 ML MOUTHWASH MM SCH ×2 (10:17→21:31)
[2023-01-22] MEDS: DIVALPROEX SODIUM 250 MG TABLET E.C. PO SCH (10:18)
[2023-01-22] MEDS: FAMOTIDINE 20 MG TABLET PO SCH ×2 (10:18→21:29)
[2023-01-22] MEDS: BICTEGRAV/EMTRICIT/TENOFOV (BIKTARVY) 50-200-25 MG TABLET PO SCH (10:18)
[2023-01-22] MEDS: levETIRAcetam 500 MG TABLET (FP) PO SCH ×2 (10:18→21:31)
[2023-01-22] MEDS: FLUoxetine HCL 20 MG CAPSULE PO SCH (10:18)
[2023-01-22] MEDS: hydrOXYzine PAMOATE 25 MG CAPSULE (FP) PO PRN (10:21)
[2023-01-22] MEDS: METHOCARBAMOL 500 MG TABLET PO PRN (10:47)
[2023-01-22] MEDS: PRAZOSIN HCL 1 MG CAPSULE PO SCH (21:29)
[2023-01-22] MEDS: QUEtiapine FUMARATE 200 MG TABLET PO SCH (21:29)
[2023-01-22] MEDS: THIAMINE HCL 100 MG TABLET (FP) PO SCH (21:29)
[2023-01-22] MEDS: DIVALPROEX SODIUM 500 MG TABLET E.C. PO SCH (21:29)
[2023-01-23] MEDS: LACTULOSE 20 GM/30 ML UDC (FOR ORAL USE ONLY) PO SCH ×3 (06:27→21:45)
[2023-01-23] MEDS: FERROUS SO4 325 MG TABLET (FP) PO SCH ×3 (06:27→21:46)
[2023-01-23] MEDS: hydrOXYzine PAMOATE 25 MG CAPSULE (FP) PO PRN (06:28)
[2023-01-23] MEDS: SUCRALFATE 1 GM TABLET (FP) PO SCH ×3 (08:33→17:07)
[2023-01-23] MEDS: DIVALPROEX SODIUM 250 MG TABLET E.C. PO SCH (09:57)
[2023-01-23] MEDS: FAMOTIDINE 20 MG TABLET PO SCH ×2 (09:58→21:46)
[2023-01-23] MEDS: BICTEGRAV/EMTRICIT/TENOFOV (BIKTARVY) 50-200-25 MG TABLET PO SCH (09:58)
[2023-01-23] MEDS: FLUoxetine HCL 20 MG CAPSULE PO SCH (09:59)
[2023-01-23] MEDS: levETIRAcetam 500 MG TABLET (FP) PO SCH ×2 (09:59→21:45)
[2023-01-23] MEDS: CHLORHEXIDINE GLUCONATE 118 ML MOUTHWASH MM SCH ×2 (09:59→21:50)
[2023-01-23] MEDS: METHOCARBAMOL 500 MG TABLET PO PRN ×2 (10:00→21:46)
[2023-01-23] MEDS: PRENATAL VITAMINS W/ FOLIC ACID TABLET (FP) PO SCH (10:00)
[2023-01-23 10:08] LABS: HGB SOLUBILITY Positive (Negative)
[2023-01-23] MEDS: THIAMINE HCL 100 MG TABLET (FP) PO SCH (21:46)
[2023-01-23] MEDS: DIVALPROEX SODIUM 500 MG TABLET E.C. PO SCH (21:46)
[2023-01-23] MEDS: QUEtiapine FUMARATE 200 MG TABLET PO SCH (21:46)
[2023-01-23] MEDS: PRAZOSIN HCL 1 MG CAPSULE PO SCH (21:46)
[2023-01-24] MEDS: FERROUS SO4 325 MG TABLET (FP) PO SCH ×3 (06:40→21:19)
[2023-01-24] MEDS: LACTULOSE 20 GM/30 ML UDC (FOR ORAL USE ONLY) PO SCH ×3 (06:40→21:16)
[2023-01-24] MEDS: SUCRALFATE 1 GM TABLET (FP) PO SCH ×3 (07:03→16:51)
[2023-01-24] MEDS: hydrOXYzine PAMOATE 25 MG CAPSULE (FP) PO PRN ×2 (08:59→17:17)
[2023-01-24] MEDS: DIVALPROEX SODIUM 250 MG TABLET E.C. PO SCH (09:00)
[2023-01-24] MEDS: levETIRAcetam 500 MG TABLET (FP) PO SCH ×2 (09:00→21:19)
[2023-01-24] MEDS: BICTEGRAV/EMTRICIT/TENOFOV (BIKTARVY) 50-200-25 MG TABLET PO SCH (09:00)
[2023-01-24] MEDS: FLUoxetine HCL 20 MG CAPSULE PO SCH (09:01)
[2023-01-24] MEDS: FAMOTIDINE 20 MG TABLET PO SCH ×2 (09:01→21:17)
[2023-01-24] MEDS: PRENATAL VITAMINS W/ FOLIC ACID TABLET (FP) PO SCH (09:01)
[2023-01-24] MEDS: METHOCARBAMOL 500 MG TABLET PO PRN ×2 (09:02→21:17)
[2023-01-24] MEDS: CHLORHEXIDINE GLUCONATE 118 ML MOUTHWASH MM SCH ×2 (11:00→21:19)
[2023-01-24] MEDS: SELENIUM SULFIDE 2.25% 180 ML SHAMPOO TP SCH (13:15)
[2023-01-24] MEDS: CHOLECALCIFEROL (VIT D3) 400 UNIT (10 MCG) TABLET PO SCH (13:15)
[2023-01-24] MEDS: GABAPENTIN 100 MG CAPSULE PO SCH ×2 (13:35→21:16)
[2023-01-24] MEDS: THIAMINE HCL 100 MG TABLET (FP) PO SCH (21:16)
[2023-01-24] MEDS: QUEtiapine FUMARATE 200 MG TABLET PO SCH (21:16)
[2023-01-24] MEDS: PRAZOSIN HCL 1 MG CAPSULE PO SCH (21:16)
[2023-01-24] MEDS: DIVALPROEX SODIUM 500 MG TABLET E.C. PO SCH (21:17)
[2023-01-25] MEDS: GABAPENTIN 100 MG CAPSULE PO SCH ×3 (06:27→21:17)
[2023-01-25] MEDS: FERROUS SO4 325 MG TABLET (FP) PO SCH ×3 (06:27→21:17)
[2023-01-25] MEDS: hydrOXYzine PAMOATE 25 MG CAPSULE (FP) PO PRN ×2 (06:27→13:05)
[2023-01-25] MEDS: LACTULOSE 20 GM/30 ML UDC (FOR ORAL USE ONLY) PO SCH ×3 (06:27→21:17)
[2023-01-25] MEDS: SUCRALFATE 1 GM TABLET (FP) PO SCH ×3 (07:27→16:40)
[2023-01-25] MEDS: CHLORHEXIDINE GLUCONATE 118 ML MOUTHWASH MM SCH ×2 (10:03→21:18)
[2023-01-25] MEDS: BICTEGRAV/EMTRICIT/TENOFOV (BIKTARVY) 50-200-25 MG TABLET PO SCH (10:04)
[2023-01-25] MEDS: METHOCARBAMOL 500 MG TABLET PO PRN ×2 (10:04→21:17)
[2023-01-25] MEDS: FLUoxetine HCL 20 MG CAPSULE PO SCH (10:04)
[2023-01-25] MEDS: FAMOTIDINE 20 MG TABLET PO SCH ×2 (10:04→21:17)
[2023-01-25] MEDS: DIVALPROEX SODIUM 250 MG TABLET E.C. PO SCH (10:05)
[2023-01-25] MEDS: CHOLECALCIFEROL (VIT D3) 400 UNIT (10 MCG) TABLET PO SCH (10:05)
[2023-01-25] MEDS: levETIRAcetam 500 MG TABLET (FP) PO SCH ×2 (10:05→21:17)
[2023-01-25] MEDS: PRENATAL VITAMINS W/ FOLIC ACID TABLET (FP) PO SCH (10:06)
[2023-01-25] MEDS: SELENIUM SULFIDE 2.25% 180 ML SHAMPOO TP SCH (10:07)
[2023-01-25] MEDS: ONDANSETRON *ODT* 4 MG TABLET SL PRN (10:19)
[2023-01-25] MEDS: MAG HYDROX/AL HYDROX/SIMETH 30 ML UNIT-DOSE CUP PO PRN (17:28)
[2023-01-25] MEDS: THIAMINE HCL 100 MG TABLET (FP) PO SCH (21:16)
[2023-01-25] MEDS: QUEtiapine FUMARATE 200 MG TABLET PO SCH (21:17)
[2023-01-25] MEDS: PRAZOSIN HCL 1 MG CAPSULE PO SCH (21:17)
[2023-01-25] MEDS: DIVALPROEX SODIUM 500 MG TABLET E.C. PO SCH (21:17)
[2023-01-26] MEDS: GABAPENTIN 100 MG CAPSULE PO SCH ×3 (06:46→21:46)
[2023-01-26] MEDS: LACTULOSE 20 GM/30 ML UDC (FOR ORAL USE ONLY) PO SCH ×3 (06:46→21:45)
[2023-01-26] MEDS: FERROUS SO4 325 MG TABLET (FP) PO SCH ×3 (06:47→21:46)
[2023-01-26] MEDS: SUCRALFATE 1 GM TABLET (FP) PO SCH ×3 (07:11→17:10)
[2023-01-26] MEDS: hydrOXYzine PAMOATE 25 MG CAPSULE (FP) PO PRN ×2 (07:14→22:19)
[2023-01-26] MEDS: PRENATAL VITAMINS W/ FOLIC ACID TABLET (FP) PO SCH (10:14)
[2023-01-26] MEDS: FLUoxetine HCL 20 MG CAPSULE PO SCH (10:19)
[2023-01-26] MEDS: CHLORHEXIDINE GLUCONATE 118 ML MOUTHWASH MM SCH ×2 (10:19→21:49)
[2023-01-26] MEDS: levETIRAcetam 500 MG TABLET (FP) PO SCH ×2 (10:20→21:45)
[2023-01-26] MEDS: BICTEGRAV/EMTRICIT/TENOFOV (BIKTARVY) 50-200-25 MG TABLET PO SCH (10:20)
[2023-01-26] MEDS: FAMOTIDINE 20 MG TABLET PO SCH ×2 (10:20→21:46)
[2023-01-26] MEDS: DIVALPROEX SODIUM 250 MG TABLET E.C. PO SCH (10:21)
[2023-01-26] MEDS: SELENIUM SULFIDE 2.25% 180 ML SHAMPOO TP SCH (10:23)
[2023-01-26] MEDS: METHOCARBAMOL 500 MG TABLET PO PRN ×2 (10:27→21:46)
[2023-01-26] MEDS ORDERED: ONDANSETRON *ODT* 4 MG TABLET SL PRN (10:31)
[2023-01-26] MEDS: ONDANSETRON *ODT* 4 MG TABLET SL PRN (10:45)
[2023-01-26] MEDS: CHOLECALCIFEROL (VIT D3) 400 UNIT (10 MCG) TABLET PO SCH (11:57)
[2023-01-26] MEDS: DIVALPROEX SODIUM 500 MG TABLET E.C. PO SCH (21:46)
[2023-01-26] MEDS: QUEtiapine FUMARATE 200 MG TABLET PO SCH (21:46)
[2023-01-26] MEDS: THIAMINE HCL 100 MG TABLET (FP) PO SCH (21:46)
[2023-01-26] MEDS: PRAZOSIN HCL 1 MG CAPSULE PO SCH (21:46)
[2023-01-27] MEDS: FERROUS SO4 325 MG TABLET (FP) PO SCH ×3 (06:31→21:24)
[2023-01-27] MEDS: LACTULOSE 20 GM/30 ML UDC (FOR ORAL USE ONLY) PO SCH ×3 (06:31→21:23)
[2023-01-27] MEDS: GABAPENTIN 100 MG CAPSULE PO SCH ×3 (06:31→21:24)
[2023-01-27] MEDS: SUCRALFATE 1 GM TABLET (FP) PO SCH ×3 (07:01→17:13)
[2023-01-27] MEDS: DIVALPROEX SODIUM 250 MG TABLET E.C. PO SCH (09:44)
[2023-01-27] MEDS: BICTEGRAV/EMTRICIT/TENOFOV (BIKTARVY) 50-200-25 MG TABLET PO SCH (09:44)
[2023-01-27] MEDS: CHLORHEXIDINE GLUCONATE 118 ML MOUTHWASH MM SCH ×2 (09:44→21:24)
[2023-01-27] MEDS: levETIRAcetam 500 MG TABLET (FP) PO SCH ×2 (09:44→21:24)
[2023-01-27] MEDS: PRENATAL VITAMINS W/ FOLIC ACID TABLET (FP) PO SCH (09:45)
[2023-01-27] MEDS: FAMOTIDINE 20 MG TABLET PO SCH ×2 (09:45→21:23)
[2023-01-27] MEDS: SELENIUM SULFIDE 2.25% 180 ML SHAMPOO TP SCH (09:46)
[2023-01-27] MEDS: hydrOXYzine PAMOATE 25 MG CAPSULE (FP) PO PRN ×2 (09:46→22:44)
[2023-01-27] MEDS: FLUoxetine HCL 20 MG CAPSULE PO SCH (09:46)
[2023-01-27] MEDS: CHOLECALCIFEROL (VIT D3) 400 UNIT (10 MCG) TABLET PO SCH (09:46)
[2023-01-27] MEDS: METHOCARBAMOL 500 MG TABLET PO PRN (09:47)
[2023-01-27] MEDS: PRAZOSIN HCL 1 MG CAPSULE PO SCH (21:23)
[2023-01-27] MEDS: THIAMINE HCL 100 MG TABLET (FP) PO SCH (21:23)
[2023-01-27] MEDS: QUEtiapine FUMARATE 200 MG TABLET PO SCH (21:24)
[2023-01-27] MEDS: DIVALPROEX SODIUM 500 MG TABLET E.C. PO SCH (21:24)
[2023-01-28] MEDS: LACTULOSE 20 GM/30 ML UDC (FOR ORAL USE ONLY) PO SCH ×3 (06:40→21:18)
[2023-01-28] MEDS: FERROUS SO4 325 MG TABLET (FP) PO SCH ×3 (06:40→21:19)
[2023-01-28] MEDS: GABAPENTIN 100 MG CAPSULE PO SCH ×3 (06:40→21:19)
[2023-01-28 07:03] VITALS: BP 102/70
[2023-01-28] MEDS: SUCRALFATE 1 GM TABLET (FP) PO SCH ×3 (07:11→16:56)
[2023-01-28] MEDS: BICTEGRAV/EMTRICIT/TENOFOV (BIKTARVY) 50-200-25 MG TABLET PO SCH (09:40)
[2023-01-28] MEDS: CHLORHEXIDINE GLUCONATE 118 ML MOUTHWASH MM SCH ×2 (09:41→21:20)
[2023-01-28] MEDS: FLUoxetine HCL 20 MG CAPSULE PO SCH (09:41)
[2023-01-28] MEDS: DIVALPROEX SODIUM 250 MG TABLET E.C. PO SCH (09:41)
[2023-01-28] MEDS: levETIRAcetam 500 MG TABLET (FP) PO SCH ×2 (09:41→21:20)
[2023-01-28] MEDS: METHOCARBAMOL 500 MG TABLET PO PRN ×2 (09:42→21:21)
[2023-01-28] MEDS: hydrOXYzine PAMOATE 25 MG CAPSULE (FP) PO PRN ×2 (09:42→21:21)
[2023-01-28] MEDS: PRENATAL VITAMINS W/ FOLIC ACID TABLET (FP) PO SCH (09:42)
[2023-01-28] MEDS: CHOLECALCIFEROL (VIT D3) 400 UNIT (10 MCG) TABLET PO SCH (09:42)
[2023-01-28] MEDS: SELENIUM SULFIDE 2.25% 180 ML SHAMPOO TP SCH (09:42)
[2023-01-28] MEDS: FAMOTIDINE 20 MG TABLET PO SCH ×2 (09:42→21:19)
[2023-01-28] MEDS: MAG HYDROX/AL HYDROX/SIMETH 30 ML UNIT-DOSE CUP PO PRN (11:16)
[2023-01-28] MEDS: THIAMINE HCL 100 MG TABLET (FP) PO SCH (21:18)
[2023-01-28] MEDS: QUEtiapine FUMARATE 200 MG TABLET PO SCH (21:19)
[2023-01-28] MEDS: PRAZOSIN HCL 1 MG CAPSULE PO SCH (21:19)
[2023-01-28] MEDS: DIVALPROEX SODIUM 500 MG TABLET E.C. PO SCH (21:19)
[2023-01-29] MEDS: FERROUS SO4 325 MG TABLET (FP) PO SCH (06:16)
[2023-01-29] MEDS: LACTULOSE 20 GM/30 ML UDC (FOR ORAL USE ONLY) PO SCH (06:16)
[2023-01-29] MEDS: GABAPENTIN 100 MG CAPSULE PO SCH (06:16)
[2023-01-29 06:46] VITALS: PULSE 102; RESP 20; TEMP 97.4
[2023-01-29] MEDS: SUCRALFATE 1 GM TABLET (FP) PO SCH (07:56)
[2023-01-29] MEDS: levETIRAcetam 500 MG TABLET (FP) PO SCH (09:02)
[2023-01-29] MEDS: FAMOTIDINE 20 MG TABLET PO SCH (09:02)
[2023-01-29] MEDS: BICTEGRAV/EMTRICIT/TENOFOV (BIKTARVY) 50-200-25 MG TABLET PO SCH (09:02)
[2023-01-29] MEDS: DIVALPROEX SODIUM 250 MG TABLET E.C. PO SCH (09:02)
[2023-01-29] MEDS: CHOLECALCIFEROL (VIT D3) 400 UNIT (10 MCG) TABLET PO SCH (09:02)
[2023-01-29] MEDS: PRENATAL VITAMINS W/ FOLIC ACID TABLET (FP) PO SCH (09:02)
[2023-01-29] MEDS: FLUoxetine HCL 20 MG CAPSULE PO SCH (09:02)
[2023-01-29] MEDS: CHLORHEXIDINE GLUCONATE 118 ML MOUTHWASH MM SCH (09:04)
[2023-01-29] MEDS: SELENIUM SULFIDE 2.25% 180 ML SHAMPOO TP SCH (09:04)
== END 2023-01-29 09:20 | disposition home or self-care (01) | DRG 772 ==
LOC: YASAS 14:27 → Y3E 23:48
PROVIDERS: ADMIT Allergy & Immunology; ATTEND Psychiatry & Neurology Pain Medicine
PROC: HZ42ZZZ Group Counseling for Substance Abuse Treatment, Cognitive-Behavioral (ICD-10-PCS; principal; 2023-01-18)
DX: F10.20 Alcohol dependence, uncomplicated (principal); F17.210 Nicotine dependence, cigarettes, uncomplicated; F41.9 Anxiety disorder, unspecified; F32.A Depression, unspecified; F43.10 Post-traumatic stress disorder, unspecified; Z21 Asymptomatic human immunodeficiency virus [HIV] infection status; E72.20 Disorder of urea cycle metabolism, unspecified; D57.3 Sickle-cell trait; K21.9 Gastro-esophageal reflux disease without esophagitis; M54.50 Low back pain, unspecified; G89.29 Other chronic pain; L21.0 Seborrhea capitis; Z86.69 Personal history of other diseases of the nervous system and sense organs; Z62.810 Personal history of physical and sexual abuse in childhood; Z86.59 Personal history of other mental and behavioral disorders; Z88.6 Allergy status to analgesic agent; Z88.8 Allergy status to other drugs, medicaments and biological substances
CPT/HCPCS: 36415; 80053; 80164; 80177; 80307; 81003; 82140; 82652; 82962; 83021; 83735; 85027; 85660; 86780; 86803; 87635; Q0162

== ENCOUNTER 2023-02-18 12:34 | Inpatient (IN) | payer OTHER ==
[2023-02-18 16:59] VITALS: BMI 21.1
[2023-02-18] MEDS ORDERED: POLYETHYLENE GLYCOL (HEALTHYLAX) 3350 17 GM PACKET PO PRN (18:06)
[2023-02-18] MEDS ORDERED: MAGNESIUM HYDROX 2400MG/30ML ORAL SUSPENSION 30 ML CUP PO PRN (18:06)
[2023-02-18] MEDS ORDERED: BENZOCAINE/MENTHOL (CHLORASEPTIC ) LOZENGE MM PRN (18:06)
[2023-02-18] MEDS ORDERED: NALOXONE HCL 0.4 MG/ML VIAL IM PRN (18:06)
[2023-02-18] MEDS ORDERED: LOPERAMIDE HCL 2 MG CAPSULE PO PRN (18:06)
[2023-02-18] MEDS ORDERED: NALOXONE HCL (KLOXXADO) 8 MG SPRAY NS PRN (18:06)
[2023-02-18] MEDS ORDERED: BISMUTH SUBSALICYLATE 524 MG/30 ML PO PRN (18:06)
[2023-02-18] MEDS ORDERED: guaiFENesin 600 MG TABLET.ER (FP) PO PRN (18:06)
[2023-02-18] MEDS ORDERED: DICYCLOMINE HCL 10 MG CAPSULE PO PRN (18:06)
[2023-02-18] MEDS ORDERED: MAG HYDROX/AL HYDROX/SIMETH 30 ML UNIT-DOSE CUP PO PRN (18:06)
[2023-02-18] MEDS ORDERED: BENZONATATE 200 MG CAPSULE PO PRN (18:06)
[2023-02-18] MEDS ORDERED: ACETAMINOPHEN 325 MG TABLET (FP) PO PRN (18:06)
[2023-02-18] MEDS ORDERED: IBUPROFEN 400 MG TABLET (FP) PO PRN (18:06)
[2023-02-18] MEDS: IBUPROFEN 600 MG TABLET (FP) PO PRN (19:18)
[2023-02-18] MEDS: chlordiazePOXIDE HCL 25 MG CAPSULE PO PRN (19:18)
[2023-02-18] MEDS ORDERED: cloNIDine HCL 0.1 MG TABLET PO PRN (19:41)
[2023-02-18] MEDS: ONDANSETRON *ODT* 4 MG TABLET SL PRN (20:34)
[2023-02-18] MEDS: chlordiazePOXIDE HCL 25 MG CAPSULE PO SCH (22:21)
[2023-02-18] MEDS: levETIRAcetam 500 MG TABLET (FP) PO SCH (22:21)
[2023-02-18] MEDS: MELATONIN 5 MG TABLETS PO SCH (22:21)
[2023-02-18] MEDS: THIAMINE HCL 100 MG TABLET (FP) PO SCH (22:21)
[2023-02-19] MEDS: chlordiazePOXIDE HCL 25 MG CAPSULE PO SCH ×4 (05:55→22:57)
[2023-02-19] MEDS: IBUPROFEN 600 MG TABLET (FP) PO PRN ×3 (06:08→20:41)
[2023-02-19] MEDS: BICTEGRAV/EMTRICIT/TENOFOV (BIKTARVY) 50-200-25 MG TABLET PO SCH (07:34)
[2023-02-19] MEDS: PRENATAL VITAMINS W/ FOLIC ACID TABLET (FP) PO SCH (10:06)
[2023-02-19] MEDS: levETIRAcetam 500 MG TABLET (FP) PO SCH ×2 (10:06→22:56)
[2023-02-19] MEDS: PANTOPRAZOLE 40 MG TABLET PO SCH (10:07)
[2023-02-19] MEDS: ONDANSETRON *ODT* 4 MG TABLET SL PRN (10:08)
[2023-02-19] MEDS: METHOCARBAMOL 500 MG TABLET PO PRN ×2 (10:08→17:20)
[2023-02-19] MEDS: hydrOXYzine PAMOATE 25 MG CAPSULE (FP) PO PRN ×2 (10:08→22:58)
[2023-02-19 12:36] LABS: CHLORIDE 101 mmol/L (98-107); POTASSIUM 4.1 mmol/L (3.5-5.1); SODIUM 137 mmol/L (136-145)
[2023-02-19 12:37] LABS: HEMATOCRIT 38.6 % (35.4-49); HEMOGLOBIN 12.2 GM/dL (11.7-16.9); MCH 25.5 pg (25.7-33.7); MCHC 31.6 g/dl (32.0-35.9); MEAN CELL VOLUME 80.8 fl (80-96); MEAN PLT VOLUME 7.9 fl (7.5-11.1); PLATELET COUNT 304 10^3/uL (134-434); RBC 4.78 M/mm3 (4.00-5.60); RDW 23.8 % (11.9-15.9); WHITE BLOOD COUNT 2.3 K/mm3 (4.0-10.0)
[2023-02-19 12:39] LABS: CALCIUM 9.1 mg/dL (8.5-10.1)
[2023-02-19 12:40] LABS: ALBUMIN 3.6 g/dl (3.4-5.0); ANION GAP 7 mmol/L (4-13); BLOOD UREA NITROGEN 23.1 mg/dL (7-18); CO2 29 mmol/L (21-32); GLUCOSE,RANDOM 102 mg/dL (74-106)
[2023-02-19 12:43] LABS: CREATININE 1.3 mg/dL (0.55-1.3); SGOT/AST 32 U/L (15-37); SGPT/ALT 39 U/L (13-61)
[2023-02-19 12:44] LABS: BILIRUBIN,TOTAL 1.3 mg/dL (0.2-1)
[2023-02-19 12:45] LABS: ALK PHOS 89 U/L (45-117)
[2023-02-19] MEDS: LACTULOSE 20 GM/30 ML UDC (FOR ORAL USE ONLY) PO SCH ×2 (13:18→22:56)
[2023-02-19] MEDS: chlordiazePOXIDE HCL 25 MG CAPSULE PO PRN (13:19)
[2023-02-19] MEDS: FERROUS SO4 325 MG TABLET (FP) PO SCH ×2 (13:54→22:56)
[2023-02-19 14:02] LABS: EPI CELLS 24 /uL (0-25.1); HYALINE CASTS 2 /uL (0-3.1); PH,URINE 5.5 (5.0-8.0); URINE APPEARANCE CLOUDY; URINE BACTERIA 11 /uL (0-1359); URINE BILIRUBIN NEGATIVE (NEGATIVE); URINE COLOR YELLOW; URINE GLUCOSE (UA) NEGATIVE (NEGATIVE); URINE KETONE TRACE (NEGATIVE); URINE LEUK ESTERASE 1+ (NEGATIVE); URINE NITRITE NEGATIVE (NEGATIVE); URINE PROTEIN NEGATIVE (NEGATIVE); URINE RBC 6 /uL (0-23.9); URINE UROBILINOGEN 0.2 mg/dL (0.2-1.0); URINE WBC 28 /uL (0-25.8)
[2023-02-19] MEDS: SUCRALFATE 1 GM TABLET (FP) PO SCH (20:24)
[2023-02-19] MEDS: COLLOIDAL OATMEAL 1 BAR EACH TP PRN (20:25)
[2023-02-19] MEDS: PRAZOSIN HCL 1 MG CAPSULE PO SCH (22:56)
[2023-02-19] MEDS: MELATONIN 5 MG TABLETS PO SCH (22:56)
[2023-02-19] MEDS: QUEtiapine FUMARATE 50 MG TABLET PO SCH (22:56)
[2023-02-19] MEDS: THIAMINE HCL 100 MG TABLET (FP) PO SCH (22:56)
[2023-02-20] MEDS: chlordiazePOXIDE HCL 25 MG CAPSULE PO SCH ×4 (05:43→22:38)
[2023-02-20] MEDS: IBUPROFEN 600 MG TABLET (FP) PO PRN ×3 (05:46→22:39)
[2023-02-20] MEDS: hydrOXYzine PAMOATE 25 MG CAPSULE (FP) PO PRN ×2 (05:50→17:47)
[2023-02-20] MEDS: ONDANSETRON *ODT* 4 MG TABLET SL PRN (05:57)
[2023-02-20] MEDS: LACTULOSE 20 GM/30 ML UDC (FOR ORAL USE ONLY) PO SCH ×3 (06:14→22:38)
[2023-02-20] MEDS: FERROUS SO4 325 MG TABLET (FP) PO SCH ×3 (06:15→22:35)
[2023-02-20] MEDS: BICTEGRAV/EMTRICIT/TENOFOV (BIKTARVY) 50-200-25 MG TABLET PO SCH (07:32)
[2023-02-20] MEDS: SUCRALFATE 1 GM TABLET (FP) PO SCH ×4 (07:33→21:11)
[2023-02-20] MEDS: PRENATAL VITAMINS W/ FOLIC ACID TABLET (FP) PO SCH (10:15)
[2023-02-20] MEDS: FLUoxetine HCL 10 MG CAPSULE PO SCH (10:16)
[2023-02-20] MEDS: levETIRAcetam 500 MG TABLET (FP) PO SCH ×2 (10:16→22:35)
[2023-02-20] MEDS: PANTOPRAZOLE 40 MG TABLET PO SCH (10:16)
[2023-02-20] MEDS ORDERED: AMMONIUM LACTATE 12% LOTION 225 GM BOTTLE TP PRN (12:54)
[2023-02-20] MEDS: LIDOCAINE 4% PATCH TP SCH (13:07)
[2023-02-20] MEDS: chlordiazePOXIDE HCL 25 MG CAPSULE PO PRN (13:29)
[2023-02-20] MEDS: DIVALPROEX SODIUM 250 MG TABLET E.C. PO SCH ×2 (14:23→22:35)
[2023-02-20] MEDS: PRAZOSIN HCL 1 MG CAPSULE PO SCH (22:35)
[2023-02-20] MEDS: MELATONIN 5 MG TABLETS PO SCH (22:35)
[2023-02-20] MEDS: LIDOCAINE PATCH REMOVAL MC SCH (22:36)
[2023-02-20] MEDS: QUEtiapine FUMARATE 50 MG TABLET PO SCH (22:36)
[2023-02-20] MEDS: THIAMINE HCL 100 MG TABLET (FP) PO SCH (22:36)
[2023-02-20] MEDS: HYDROCORTISONE 2.5% TOPICAL CREAM 30 GM TUBE TP SCH ×2 (22:37)
[2023-02-20] MEDS: METHOCARBAMOL 500 MG TABLET PO PRN (22:38)
[2023-02-21] MEDS ORDERED: chlordiazePOXIDE HCL 10 MG CAPSULE PO PRN
[2023-02-21] MEDS: chlordiazePOXIDE HCL 10 MG CAPSULE PO SCH ×4 (05:55→22:35)
[2023-02-21] MEDS: LACTULOSE 20 GM/30 ML UDC (FOR ORAL USE ONLY) PO SCH ×3 (06:13→22:30)
[2023-02-21] MEDS: FERROUS SO4 325 MG TABLET (FP) PO SCH ×3 (06:13→22:32)
[2023-02-21] MEDS: hydrOXYzine PAMOATE 25 MG CAPSULE (FP) PO PRN (06:24)
[2023-02-21] MEDS: ONDANSETRON *ODT* 4 MG TABLET SL PRN ×2 (06:28→14:52)
[2023-02-21] MEDS: IBUPROFEN 600 MG TABLET (FP) PO PRN ×3 (06:50→21:11)
[2023-02-21] MEDS: METHOCARBAMOL 500 MG TABLET PO PRN ×3 (06:50→22:31)
[2023-02-21] MEDS: BICTEGRAV/EMTRICIT/TENOFOV (BIKTARVY) 50-200-25 MG TABLET PO SCH (07:04)
[2023-02-21] MEDS: SUCRALFATE 1 GM TABLET (FP) PO SCH ×3 (07:05→17:16)
[2023-02-21] MEDS: HYDROCORTISONE 2.5% TOPICAL CREAM 30 GM TUBE TP SCH ×2 (10:39→23:20)
[2023-02-21] MEDS: LIDOCAINE 4% PATCH TP SCH (10:39)
[2023-02-21] MEDS: levETIRAcetam 500 MG TABLET (FP) PO SCH ×2 (10:40→22:31)
[2023-02-21] MEDS: DIVALPROEX SODIUM 250 MG TABLET E.C. PO SCH ×2 (10:40→22:33)
[2023-02-21] MEDS: PRENATAL VITAMINS W/ FOLIC ACID TABLET (FP) PO SCH (10:40)
[2023-02-21] MEDS: FLUoxetine HCL 10 MG CAPSULE PO SCH (10:40)
[2023-02-21] MEDS: PANTOPRAZOLE 40 MG TABLET PO SCH (10:40)
[2023-02-21] MEDS: QUEtiapine FUMARATE 200 MG TABLET PO SCH (22:31)
[2023-02-21] MEDS: THIAMINE HCL 100 MG TABLET (FP) PO SCH (22:31)
[2023-02-21] MEDS: LIDOCAINE PATCH REMOVAL MC SCH (22:33)
[2023-02-21] MEDS: MELATONIN 5 MG TABLETS PO SCH (22:35)
[2023-02-21] MEDS: PRAZOSIN HCL 1 MG CAPSULE PO SCH (23:20)
[2023-02-22] MEDS: chlordiazePOXIDE HCL 10 MG CAPSULE PO SCH ×2 (05:27→17:15)
[2023-02-22] MEDS: FERROUS SO4 325 MG TABLET (FP) PO SCH ×3 (05:27→22:18)
[2023-02-22] MEDS: LACTULOSE 20 GM/30 ML UDC (FOR ORAL USE ONLY) PO SCH ×3 (05:27→22:17)
[2023-02-22] MEDS: hydrOXYzine PAMOATE 25 MG CAPSULE (FP) PO PRN ×3 (06:08→23:43)
[2023-02-22] MEDS: SUCRALFATE 1 GM TABLET (FP) PO SCH ×3 (07:10→17:16)
[2023-02-22] MEDS: BICTEGRAV/EMTRICIT/TENOFOV (BIKTARVY) 50-200-25 MG TABLET PO SCH (07:10)
[2023-02-22] MEDS: LIDOCAINE 4% PATCH TP SCH (10:13)
[2023-02-22] MEDS: HYDROCORTISONE 2.5% TOPICAL CREAM 30 GM TUBE TP SCH ×2 (10:14→22:28)
[2023-02-22] MEDS: DIVALPROEX SODIUM 250 MG TABLET E.C. PO SCH ×2 (10:14→22:18)
[2023-02-22] MEDS: levETIRAcetam 500 MG TABLET (FP) PO SCH ×2 (10:14→22:18)
[2023-02-22] MEDS: PANTOPRAZOLE 40 MG TABLET PO SCH (10:14)
[2023-02-22] MEDS: PRENATAL VITAMINS W/ FOLIC ACID TABLET (FP) PO SCH (10:14)
[2023-02-22] MEDS: FLUoxetine HCL 10 MG CAPSULE PO SCH (10:15)
[2023-02-22] MEDS: METHOCARBAMOL 500 MG TABLET PO PRN ×2 (10:18→22:18)
[2023-02-22] MEDS ORDERED: FLUoxetine HCL 10 MG CAPSULE PO ONE (14:43)
[2023-02-22] MEDS: PRAZOSIN HCL 1 MG CAPSULE PO SCH (22:18)
[2023-02-22] MEDS: THIAMINE HCL 100 MG TABLET (FP) PO SCH (22:18)
[2023-02-22] MEDS: MELATONIN 5 MG TABLETS PO SCH (22:19)
[2023-02-22] MEDS: LIDOCAINE PATCH REMOVAL MC SCH (22:19)
[2023-02-22] MEDS: QUEtiapine FUMARATE 200 MG TABLET PO SCH (22:19)
[2023-02-22] MEDS: COLLOIDAL OATMEAL 1 BAR EACH TP PRN (22:46)
[2023-02-23] MEDS ORDERED: chlordiazePOXIDE HCL 10 MG CAPSULE PO ONE (05:00)
[2023-02-23] MEDS: FERROUS SO4 325 MG TABLET (FP) PO SCH (05:41)
[2023-02-23] MEDS: LACTULOSE 20 GM/30 ML UDC (FOR ORAL USE ONLY) PO SCH (05:41)
[2023-02-23] MEDS: SUCRALFATE 1 GM TABLET (FP) PO SCH (07:15)
[2023-02-23] MEDS: BICTEGRAV/EMTRICIT/TENOFOV (BIKTARVY) 50-200-25 MG TABLET PO SCH (07:15)
[2023-02-23 09:23] VITALS: BP 112/66; PULSE 80; RESP 20; TEMP 98.5
[2023-02-23] MEDS: HYDROCORTISONE 2.5% TOPICAL CREAM 30 GM TUBE TP SCH (09:49)
[2023-02-23] MEDS: levETIRAcetam 500 MG TABLET (FP) PO SCH (09:50)
[2023-02-23] MEDS: PANTOPRAZOLE 40 MG TABLET PO SCH (09:50)
[2023-02-23] MEDS: PRENATAL VITAMINS W/ FOLIC ACID TABLET (FP) PO SCH (09:50)
[2023-02-23] MEDS: DIVALPROEX SODIUM 250 MG TABLET E.C. PO SCH (09:50)
[2023-02-23] MEDS: LIDOCAINE 4% PATCH TP SCH (09:50)
[2023-02-23] MEDS ORDERED: FLUoxetine HCL 20 MG CAPSULE PO SCH (10:00)
== END 2023-02-23 09:50 | disposition other institution (70) | DRG 775 ==
LOC: SUATTDRO 12:34 → YASAS 12:34 → Y3N 18:19
PROVIDERS: ADMIT Allergy & Immunology; ATTEND Surgery
PROC: HZ2ZZZZ Detoxification Services for Substance Abuse Treatment (ICD-10-PCS; principal; 2023-02-18)
DX: F10.230 Alcohol dependence with withdrawal, uncomplicated (principal); F25.9 Schizoaffective disorder, unspecified; F19.24 Other psychoactive substance dependence with psychoactive substance-induced mood disorder; F41.9 Anxiety disorder, unspecified; F32.A Depression, unspecified; F43.10 Post-traumatic stress disorder, unspecified; E72.20 Disorder of urea cycle metabolism, unspecified; Z21 Asymptomatic human immunodeficiency virus [HIV] infection status; G40.909 Epilepsy, unspecified, not intractable, without status epilepticus; K21.9 Gastro-esophageal reflux disease without esophagitis; K64.9 Unspecified hemorrhoids; M54.50 Low back pain, unspecified; G89.29 Other chronic pain; Z87.19 Personal history of other diseases of the digestive system; Z99.89 Dependence on other enabling machines and devices; Z88.6 Allergy status to analgesic agent; Z88.8 Allergy status to other drugs, medicaments and biological substances
CPT/HCPCS: 36415; 80053; 80307; 81003; 82140; 85027; 86780; 87635; Q0162

== ENCOUNTER 2023-04-19 17:38 | Inpatient (IN) | payer OTHER ==
[2023-04-19 18:22] VITALS: BMI 21.7
[2023-04-19] MEDS ORDERED: LOPERAMIDE HCL 2 MG CAPSULE PO PRN (19:23)
[2023-04-19] MEDS ORDERED: POLYETHYLENE GLYCOL (HEALTHYLAX) 3350 17 GM PACKET PO PRN (19:23)
[2023-04-19] MEDS ORDERED: NALOXONE HCL 0.4 MG/ML VIAL IM PRN (19:23)
[2023-04-19] MEDS ORDERED: BENZONATATE 200 MG CAPSULE PO PRN (19:23)
[2023-04-19] MEDS ORDERED: NALOXONE HCL (KLOXXADO) 8 MG SPRAY NS PRN (19:23)
[2023-04-19] MEDS ORDERED: guaiFENesin 600 MG TABLET.ER (FP) PO PRN (19:23)
[2023-04-19] MEDS ORDERED: BENZOCAINE/MENTHOL (CHLORASEPTIC ) LOZENGE MM PRN (19:23)
[2023-04-19] MEDS: MELATONIN 5 MG TABLETS PO SCH (23:21)
[2023-04-19] MEDS: levETIRAcetam 500 MG TABLET (FP) PO SCH (23:21)
[2023-04-19] MEDS: THIAMINE HCL 100 MG TABLET (FP) PO SCH (23:22)
[2023-04-19] MEDS: METHOCARBAMOL 500 MG TABLET PO PRN (23:22)
[2023-04-19] MEDS: MAG HYDROX/AL HYDROX/SIMETH 30 ML UNIT-DOSE CUP PO PRN (23:51)
[2023-04-20] MEDS: hydrOXYzine PAMOATE 25 MG CAPSULE (FP) PO PRN (01:53)
[2023-04-20] MEDS: PRENATAL VITAMINS W/ FOLIC ACID TABLET (FP) PO SCH (10:10)
[2023-04-20] MEDS: BICTEGRAV/EMTRICIT/TENOFOV (BIKTARVY) 50-200-25 MG TABLET PO SCH (10:12)
[2023-04-20] MEDS: FLUoxetine HCL 20 MG CAPSULE PO SCH (10:13)
[2023-04-20] MEDS: PANTOPRAZOLE 40 MG TABLET PO SCH (10:13)
[2023-04-20 11:22] LABS: HEMATOCRIT 38.3 % (35.4-49); HEMOGLOBIN 12.2 GM/dL (11.7-16.9); MCH 26.8 pg (25.7-33.7); MCHC 31.9 g/dl (32.0-35.9); MEAN CELL VOLUME 84.2 fl (80-96); MEAN PLT VOLUME 8.6 fl (7.5-11.1); PLATELET COUNT 418 10^3/uL (134-434); RBC 4.55 M/mm3 (4.00-5.60); RDW 23.8 % (11.9-15.9); WHITE BLOOD COUNT 4.8 K/mm3 (4.0-10.0)
[2023-04-20 11:33] LABS: PH,URINE 7.5 (5.0-8.0); URINE APPEARANCE CLEAR; URINE BILIRUBIN NEGATIVE (NEGATIVE); URINE COLOR YELLOW; URINE GLUCOSE (UA) NEGATIVE (NEGATIVE); URINE KETONE NEGATIVE (NEGATIVE); URINE LEUK ESTERASE NEGATIVE (NEGATIVE); URINE NITRITE NEGATIVE (NEGATIVE); URINE PROTEIN NEGATIVE (NEGATIVE)
[2023-04-20 11:41] LABS: CHLORIDE 103 mmol/L (98-107); POTASSIUM 4.2 mmol/L (3.5-5.1); SODIUM 137 mmol/L (136-145)
[2023-04-20 11:50] LABS: CALCIUM 9.1 mg/dL (8.5-10.1)
[2023-04-20 11:51] LABS: ALBUMIN 3.2 g/dl (3.4-5.0); ANION GAP 7 mmol/L (4-13); BLOOD UREA NITROGEN 12.9 mg/dL (7-18); CO2 27 mmol/L (21-32); CREATININE 0.9 mg/dL (0.55-1.3); GLUCOSE,RANDOM 97 mg/dL (74-106); SGOT/AST 11 U/L (15-37)
[2023-04-20 11:52] LABS: BILIRUBIN,TOTAL 0.2 mg/dL (0.2-1)
[2023-04-20 11:54] LABS: ALK PHOS 81 U/L (45-117); SGPT/ALT 14 U/L (13-61)
[2023-04-20] MEDS: HYDROCORTISONE 2.5% TOPICAL CREAM 30 GM TUBE PR SCH (13:52)
[2023-04-20] MEDS: DOCUSATE SODIUM 100 MG CAPSULE (FP) PO PRN (14:18)
[2023-04-20] MEDS: BENZOCAINE 28 GM HEMORRHOIDAL OINTMENT TP PRN (14:19)
[2023-04-20] MEDS: MAGNESIUM HYDROX 2400MG/30ML ORAL SUSPENSION 30 ML CUP PO PRN (14:20)
[2023-04-20] MEDS ORDERED: BUPRENORPHINE HCL 150 MCG, BUPRENORPHINE HCL 75 MCG BC PRN (14:48)
[2023-04-20 15:29] LABS: SYPHILIS W/ RPR CONF EQUIVOCAL (NONREACTIVE)
[2023-04-20] MEDS: SUCRALFATE 1 GM TABLET (FP) PO SCH (15:47)
[2023-04-20] MEDS: BUPRENORPHINE HCL 150 MCG, BUPRENORPHINE HCL 75 MCG BC ONE (15:47)
[2023-04-20] MEDS: WITCH HAZEL 50% (TUCKS) 40 PAD/JAR PAD TP PRN (17:38)
[2023-04-20] MEDS: PRAZOSIN HCL 1 MG CAPSULE PO SCH (21:30)
[2023-04-20] MEDS: QUEtiapine FUMARATE 200 MG TABLET PO SCH (21:31)
[2023-04-21] MEDS ORDERED: BUPRENORPHINE HCL 150 MCG, BUPRENORPHINE HCL 75 MCG BC PRN
[2023-04-21] MEDS: ONDANSETRON *ODT* 4 MG TABLET SL ONE (07:04)
[2023-04-21] MEDS: BUPRENORPHINE HCL 150 MCG, BUPRENORPHINE HCL 75 MCG BC SCH (07:12)
[2023-04-21] MEDS: SUCRALFATE 1 GM TABLET (FP) PO SCH (16:41)
[2023-04-22] MEDS ORDERED: BUPRENORPHINE HCL 450 MCG FILM BC PRN
[2023-04-22] MEDS: BUPRENORPHINE HCL 450 MCG FILM BC SCH (06:40)
[2023-04-23] MEDS: POLYETHYLENE GLYCOL (HEALTHYLAX) 3350 17 GM PACKET PO SCH (11:17)
[2023-04-23] MEDS: BENZOCAINE 28 GM HEMORRHOIDAL OINTMENT RC ONE (11:17)
[2023-04-23] MEDS: SELENIUM SULFIDE 2.25% 180 ML SHAMPOO TP SCH (13:02)
[2023-04-23] MEDS: LACTULOSE 20 GM/30 ML UDC (FOR ORAL USE ONLY) PO SCH (14:18)
[2023-04-24] MEDS: IBUPROFEN 400 MG TABLET (FP) PO PRN (12:00)
[2023-04-24] MEDS: CARBAMIDE PEROXIDE 6.5% OTIC 15 ML BOTTLE AS SCH (12:02)
[2023-04-25] MEDS: NALTREXONE HCL 50 MG TABLET PO SCH (10:19)
[2023-04-26 06:51] VITALS: TEMP 97.5
[2023-04-26 08:54] VITALS: RESP 18
[2023-04-26 09:03] VITALS: BP 111/75; PULSE 102
[2023-04-26] MEDS ORDERED: NALTREXONE HCL 50 MG TABLET PO SCH (10:00)
== END 2023-04-26 10:05 | disposition home or self-care (01) | DRG 772 ==
LOC: YASAS 17:38 → Y3W 22:47
PROVIDERS: ADMIT Allergy & Immunology; ATTEND Psychiatry & Neurology Pain Medicine
PROC: HZ42ZZZ Group Counseling for Substance Abuse Treatment, Cognitive-Behavioral (ICD-10-PCS; principal; 2023-04-19)
DX: F10.20 Alcohol dependence, uncomplicated (principal); F13.20 Sedative, hypnotic or anxiolytic dependence, uncomplicated; F25.9 Schizoaffective disorder, unspecified; F19.282 Other psychoactive substance dependence with psychoactive substance-induced sleep disorder; F43.10 Post-traumatic stress disorder, unspecified; F41.9 Anxiety disorder, unspecified; F32.A Depression, unspecified; E72.20 Disorder of urea cycle metabolism, unspecified; K21.9 Gastro-esophageal reflux disease without esophagitis; H61.22 Impacted cerumen, left ear; M54.50 Low back pain, unspecified; G89.29 Other chronic pain; G89.18 Other acute postprocedural pain; Z87.891 Personal history of nicotine dependence; Z87.19 Personal history of other diseases of the digestive system; Z91.410 Personal history of adult physical and sexual abuse; Z99.89 Dependence on other enabling machines and devices; Z88.6 Allergy status to analgesic agent
CPT/HCPCS: 36415; 80053; 80164; 80177; 80307; 81003; 82140; 82962; 83036; 84443; 85027; 86780; 86803; 87635; 93005; 93010; Q0162

== ENCOUNTER 2023-06-19 18:57 | Inpatient (IN) | payer OTHER ==
[2023-06-19 19:19] VITALS: BMI 22.4
[2023-06-19] MEDS ORDERED: NICOTINE POLACRILEX 2 MG GUM BUC PRN (20:51)
[2023-06-19] MEDS ORDERED: ONDANSETRON *ODT* 4 MG TABLET SL PRN (20:51)
[2023-06-19] MEDS ORDERED: NALOXONE HCL (KLOXXADO) 8 MG SPRAY NS PRN (20:51)
[2023-06-19] MEDS ORDERED: POLYETHYLENE GLYCOL (HEALTHYLAX) 3350 17 GM PACKET PO PRN (20:51)
[2023-06-19] MEDS ORDERED: guaiFENesin 600 MG TABLET.ER (FP) PO PRN (20:51)
[2023-06-19] MEDS ORDERED: NALOXONE HCL 0.4 MG/ML VIAL IM PRN (20:51)
[2023-06-19] MEDS ORDERED: BENZOCAINE/MENTHOL (CHLORASEPTIC ) LOZENGE MM PRN (20:51)
[2023-06-19] MEDS ORDERED: MAGNESIUM HYDROX 2400MG/30ML ORAL SUSPENSION 30 ML CUP PO PRN (20:51)
[2023-06-19] MEDS ORDERED: BISMUTH SUBSALICYLATE 524 MG/30 ML PO PRN (20:51)
[2023-06-19] MEDS ORDERED: BENZONATATE 200 MG CAPSULE PO PRN (20:51)
[2023-06-19] MEDS ORDERED: LORazepam 1 MG TABLET PO PRN (21:02)
[2023-06-19] MEDS: levETIRAcetam 500 MG TABLET (FP) PO SCH (22:46)
[2023-06-19] MEDS ORDERED: WITCH HAZEL TP PRN (23:07)
[2023-06-19] MEDS: LORazepam 2 MG TABLET PO SCH (23:29)
[2023-06-19] MEDS: MELATONIN 5 MG TABLETS PO SCH (23:29)
[2023-06-19] MEDS: THIAMINE HCL 100 MG TABLET (FP) PO SCH (23:29)
[2023-06-19] MEDS: QUETIAPINE FUMARATE PO ONE (23:38)
[2023-06-20] MEDS: METHOCARBAMOL 500 MG TABLET PO PRN (05:37)
[2023-06-20] MEDS: LACTULOSE 20 GM/30 ML UDC (FOR ORAL USE ONLY) PO SCH ×2 (05:38→17:09)
[2023-06-20] MEDS: PANTOPRAZOLE 40 MG TABLET PO SCH (09:03)
[2023-06-20] MEDS: BICTEGRAV/EMTRICIT/TENOFOV (BIKTARVY) 50-200-25 MG TABLET PO SCH (09:03)
[2023-06-20] MEDS: PRENATAL VITAMINS W/ FOLIC ACID TABLET (FP) PO SCH (09:04)
[2023-06-20 12:05] LABS: CHLORIDE 103 mmol/L (98-107); POTASSIUM 3.7 mmol/L (3.5-5.1); SODIUM 135 mmol/L (136-145)
[2023-06-20 12:07] LABS: ALBUMIN 3.3 g/dl (3.4-5.0); ANION GAP 4 mmol/L (4-13); CO2 28 mmol/L (21-32); GLUCOSE,RANDOM 89 mg/dL (74-106)
[2023-06-20 12:08] LABS: BLOOD UREA NITROGEN 13.5 mg/dL (7-18)
[2023-06-20 12:10] LABS: CREATININE 0.9 mg/dL (0.55-1.3)
[2023-06-20 12:12] LABS: BILIRUBIN,TOTAL 0.4 mg/dL (0.2-1); SGOT/AST 25 U/L (15-37); SGPT/ALT 18 U/L (13-61)
[2023-06-20 12:14] LABS: ALK PHOS 97 U/L (45-117)
[2023-06-20 12:18] LABS: HEMATOCRIT 36.6 % (35.4-49); HEMOGLOBIN 11.9 GM/dL (11.7-16.9); MCH 27.8 pg (25.7-33.7); MCHC 32.6 g/dl (32.0-35.9); MEAN CELL VOLUME 85.5 fl (80-96); MEAN PLT VOLUME 8.3 fl (7.5-11.1); PLATELET COUNT 216 10^3/uL (134-434); RBC 4.28 M/mm3 (4.00-5.60); RDW 20.2 % (11.9-15.9); WHITE BLOOD COUNT 3.1 K/mm3 (4.0-10.0)
[2023-06-20] MEDS: SUCRALFATE 1 GM TABLET (FP) PO SCH (17:09)
[2023-06-20] MEDS: POLYETHYLENE GLYCOL (HEALTHYLAX) 3350 17 GM PACKET PO SCH (17:13)
[2023-06-20] MEDS: BENZOCAINE 20 % GEL TUBE MM PRN (19:31)
[2023-06-20] MEDS ORDERED: QUETIAPINE FUMARATE PO SCH (22:00)
[2023-06-20] MEDS: DIVALPROEX SODIUM 500 MG TABLET E.C. PO SCH (22:30)
[2023-06-20] MEDS: PRAZOSIN HCL 1 MG CAPSULE PO SCH (22:30)
[2023-06-20] MEDS: QUEtiapine FUMARATE 200 MG TABLET PO SCH (22:30)
[2023-06-21] MEDS: LORazepam 1 MG TABLET PO SCH (05:58)
[2023-06-21] MEDS: DIVALPROEX SODIUM 250 MG TABLET E.C. PO SCH (09:16)
[2023-06-21] MEDS: FLUoxetine HCL 20 MG CAPSULE PO SCH (09:16)
[2023-06-21] MEDS: DICYCLOMINE HCL 10 MG CAPSULE PO PRN (13:09)
[2023-06-21] MEDS: MAG HYDROX/AL HYDROX/SIMETH 30 ML UNIT-DOSE CUP PO PRN (13:12)
[2023-06-21] MEDS: SELENIUM SULFIDE 2.5% LOTION 4 OZ. TP SCH (15:54)
[2023-06-21] MEDS: HYDROCORTISONE 2.5% TOPICAL CREAM 30 GM TUBE TP SCH (15:55)
[2023-06-22] MEDS ORDERED: LORazepam 0.5 MG TABLET PO PRN
[2023-06-22] MEDS: LORazepam 0.5 MG TABLET PO SCH (05:43)
[2023-06-22] MEDS ORDERED: SENNOSIDES/DOCUSATE COMBO (SENNA PLUS) TABLET (UD) PO PRN ×2 (09:21→09:24)
[2023-06-22] MEDS ORDERED: SIMETHICONE 80 MG TAB.CHEW (FP) PO PRN (09:23)
[2023-06-22] MEDS: LOPERAMIDE HCL 2 MG CAPSULE PO PRN (09:45)
[2023-06-22] MEDS: hydrOXYzine PAMOATE 25 MG CAPSULE (FP) PO PRN (19:16)
[2023-06-23] MEDS: diphenhydrAMINE HCL 25 MG CAPSULE (FP) PO ONE (00:33)
[2023-06-23] MEDS: LORazepam 0.5 MG TABLET PO ONE (05:46)
[2023-06-23 06:58] VITALS: BP 110/69; PULSE 83; RESP 16; TEMP 97.6
== END 2023-06-23 09:40 | disposition home or self-care (01) | DRG 775 ==
LOC: YASAS 18:57 → Y6N 20:56
PROVIDERS: ADMIT Allergy & Immunology; ATTEND Surgery
PROC: HZ2ZZZZ Detoxification Services for Substance Abuse Treatment (ICD-10-PCS; principal; 2023-06-19)
DX: F10.230 Alcohol dependence with withdrawal, uncomplicated (principal); F19.24 Other psychoactive substance dependence with psychoactive substance-induced mood disorder; Z72.0 Tobacco use; F43.10 Post-traumatic stress disorder, unspecified; Z21 Asymptomatic human immunodeficiency virus [HIV] infection status; E72.20 Disorder of urea cycle metabolism, unspecified; G47.00 Insomnia, unspecified; G40.909 Epilepsy, unspecified, not intractable, without status epilepticus; K21.9 Gastro-esophageal reflux disease without esophagitis; K64.9 Unspecified hemorrhoids; Z62.810 Personal history of physical and sexual abuse in childhood; Z99.89 Dependence on other enabling machines and devices; Z59.00 Homelessness unspecified; Z88.6 Allergy status to analgesic agent
CPT/HCPCS: 36415; 80053; 80305; 80307; 82140; 85027; 86780; 93005; 93010

== ENCOUNTER 2023-10-09 14:52 | Inpatient (IN) | payer OTHER ==
[2023-10-09 15:42] VITALS: BMI 21.7
[2023-10-09] MEDS ORDERED: BENZOCAINE/MENTHOL (CHLORASEPTIC ) LOZENGE MM PRN (17:42)
[2023-10-09] MEDS ORDERED: IBUPROFEN 400 MG TABLET (FP) PO PRN (17:42)
[2023-10-09] MEDS ORDERED: ACETAMINOPHEN 325 MG TABLET (FP) PO PRN (17:42)
[2023-10-09] MEDS ORDERED: guaiFENesin 600 MG TABLET.ER (FP) PO PRN (17:42)
[2023-10-09] MEDS ORDERED: POLYETHYLENE GLYCOL (HEALTHYLAX) 3350 17 GM PACKET PO PRN (17:42)
[2023-10-09] MEDS ORDERED: MAGNESIUM HYDROX 2400MG/30ML ORAL SUSPENSION 30 ML CUP PO PRN (17:42)
[2023-10-09] MEDS ORDERED: BENZONATATE 200 MG CAPSULE PO PRN (17:42)
[2023-10-09] MEDS ORDERED: LOPERAMIDE HCL 2 MG CAPSULE PO PRN (17:42)
[2023-10-09] MEDS ORDERED: BISMUTH SUBSALICYLATE 524 MG/30 ML PO PRN (17:42)
[2023-10-09] MEDS ORDERED: NALOXONE HCL 0.4 MG/ML VIAL IM PRN (17:42)
[2023-10-09] MEDS ORDERED: NALOXONE (NARCAN) HCL 4 MG/0.1 ML SPRAY NS PRN (17:42)
[2023-10-09] MEDS ORDERED: hydrOXYzine PAMOATE 25 MG CAPSULE (FP) PO ONE (17:57)
[2023-10-09] MEDS ORDERED: levETIRAcetam 500 MG TABLET (FP) PO ONE (17:58)
[2023-10-09] MEDS ORDERED: WITCH HAZEL 50% (TUCKS) 40 PAD/JAR PAD TP PRN (18:34)
[2023-10-09] MEDS: hydrOXYzine PAMOATE 25 MG CAPSULE (FP) PO ONE (18:44)
[2023-10-09] MEDS: levETIRAcetam 500 MG TABLET (FP) PO ONE (18:44)
[2023-10-09] MEDS: MELATONIN 5 MG TABLETS PO SCH (22:13)
[2023-10-09] MEDS: LORazepam 2 MG TABLET PO SCH (22:13)
[2023-10-09] MEDS: levETIRAcetam 500 MG TABLET (FP) PO SCH (22:13)
[2023-10-09] MEDS: THIAMINE 100 MG TABLET PO SCH (22:13)
[2023-10-10] MEDS: LORazepam 1 MG TABLET PO PRN (02:20)
[2023-10-10] MEDS: hydrOXYzine PAMOATE 25 MG CAPSULE (FP) PO PRN (02:20)
[2023-10-10] MEDS: SUCRALFATE 1 GM TABLET (FP) PO SCH (06:34)
[2023-10-10] MEDS: BICTEGRAV/EMTRICIT/TENOFOV (BIKTARVY) 50-200-25 MG TABLET PO SCH (08:06)
[2023-10-10] MEDS: PANTOPRAZOLE 40 MG TABLET PO SCH (10:08)
[2023-10-10] MEDS: PRENATAL VITAMINS W/ FOLIC ACID TABLET (FP) PO SCH (10:08)
[2023-10-10 10:18] LABS: HEMATOCRIT 37.7 % (35.4-49); HEMOGLOBIN 12.5 GM/dL (11.7-16.9); MCH 31.3 pg (25.7-33.7); MCHC 33.2 g/dl (32.0-35.9); MEAN CELL VOLUME 94.3 fl (80-96); MEAN PLT VOLUME 8.3 fl (7.5-11.1); PLATELET COUNT 199 10^3/uL (134-434); RDW 19.2 % (11.9-15.9); WHITE BLOOD COUNT 2.7 K/mm3 (4.0-10.0)
[2023-10-10] MEDS: METHOCARBAMOL 500 MG TABLET PO PRN (10:42)
[2023-10-10 11:40] LABS: CHLORIDE 100 mmol/L (98-107); POTASSIUM 3.9 mmol/L (3.5-5.1); SODIUM 137 mmol/L (136-145)
[2023-10-10 11:49] LABS: CREATININE 0.9 mg/dL (0.55-1.3); GLUCOSE,RANDOM 129 mg/dL (74-106); SGPT/ALT 36 U/L (13-61)
[2023-10-10 11:50] LABS: ALBUMIN 3.4 g/dl (3.4-5.0)
[2023-10-10 11:51] LABS: BLOOD UREA NITROGEN 13.2 mg/dL (7-18); TOT PROT 7.2 g/dl (6.4-8.2)
[2023-10-10 11:52] LABS: ALK PHOS 96 U/L (45-117); ANION GAP 10 mmol/L (4-13); CALCIUM 9.2 mg/dL (8.5-10.1); CO2 27 mmol/L (21-32)
[2023-10-10 11:53] LABS: SGOT/AST 36 U/L (15-37)
[2023-10-10 11:58] LABS: BILIRUBIN,TOTAL 0.4 mg/dL (0.2-1)
[2023-10-10] MEDS: IBUPROFEN 600 MG TABLET (FP) PO PRN (12:42)
[2023-10-10] MEDS: ONDANSETRON *ODT* 4 MG TABLET SL PRN (12:42)
[2023-10-10] MEDS: FLUoxetine HCL 20 MG CAPSULE PO ONE (15:49)
[2023-10-10] MEDS: DICYCLOMINE HCL 10 MG CAPSULE PO PRN (17:22)
[2023-10-10] MEDS: MAG HYDROX/AL HYDROX/SIMETH 30 ML UNIT-DOSE CUP PO PRN (22:24)
[2023-10-10] MEDS: QUEtiapine FUMARATE 200 MG TABLET PO SCH (22:24)
[2023-10-11] MEDS: LORazepam 1 MG TABLET PO SCH (05:41)
[2023-10-11] MEDS: FLUoxetine HCL 20 MG CAPSULE PO SCH (09:51)
[2023-10-11] MEDS ORDERED: FLUoxetine HCL 20 MG CAPSULE PO ONE (15:10)
[2023-10-11 16:39] VITALS: RESP 18
[2023-10-11 20:31] VITALS: PULSE 90
[2023-10-12] MEDS ORDERED: LORazepam 0.5 MG TABLET PO PRN
[2023-10-12] MEDS: LORazepam 0.5 MG TABLET PO SCH (05:25)
[2023-10-12 06:11] VITALS: BP 129/82; TEMP 98.7
[2023-10-13] MEDS ORDERED: LORazepam 0.5 MG TABLET PO ONE (05:00)
== END 2023-10-12 07:30 | disposition home or self-care (01) | DRG 775 ==
LOC: YASAS 14:52 → Y3N 17:52
PROVIDERS: ADMIT Allergy & Immunology; ATTEND Surgery
PROC: HZ2ZZZZ Detoxification Services for Substance Abuse Treatment (ICD-10-PCS; principal; 2023-10-09)
DX: F10.230 Alcohol dependence with withdrawal, uncomplicated (principal); F25.9 Schizoaffective disorder, unspecified; F43.10 Post-traumatic stress disorder, unspecified; Z21 Asymptomatic human immunodeficiency virus [HIV] infection status; G40.909 Epilepsy, unspecified, not intractable, without status epilepticus; G47.00 Insomnia, unspecified; K21.9 Gastro-esophageal reflux disease without esophagitis; Z87.19 Personal history of other diseases of the digestive system; Z99.89 Dependence on other enabling machines and devices; Z91.85 Personal history of military service; Z88.6 Allergy status to analgesic agent
CPT/HCPCS: 36415; 80053; 80305; 80307; 85027; 86780; 93005; 93010; Q0162

== ENCOUNTER 2024-02-16 13:55 | Inpatient (IN) | payer OTHER ==
[2024-02-16 14:39] VITALS: BMI 23.8
[2024-02-16] MEDS ORDERED: IBUPROFEN 600 MG TABLET (FP) PO PRN (16:48)
[2024-02-16] MEDS ORDERED: DICYCLOMINE HCL 10 MG CAPSULE PO PRN (16:48)
[2024-02-16] MEDS ORDERED: MAG HYDROX/AL HYDROX/SIMETH 30 ML UNIT-DOSE CUP PO PRN (16:48)
[2024-02-16] MEDS ORDERED: guaiFENesin 600 MG TABLET.ER (FP) PO PRN (16:48)
[2024-02-16] MEDS ORDERED: IBUPROFEN 400 MG TABLET (FP) PO PRN (16:48)
[2024-02-16] MEDS ORDERED: METHOCARBAMOL 500 MG TABLET PO PRN (16:48)
[2024-02-16] MEDS ORDERED: BISMUTH SUBSALICYLATE 524 MG/30 ML PO PRN (16:48)
[2024-02-16] MEDS ORDERED: POLYETHYLENE GLYCOL (HEALTHYLAX) 3350 17 GM PACKET PO PRN (16:48)
[2024-02-16] MEDS ORDERED: hydrOXYzine PAMOATE 25 MG CAPSULE (FP) PO PRN (16:48)
[2024-02-16] MEDS ORDERED: ONDANSETRON *ODT* 4 MG TABLET SL PRN (16:48)
[2024-02-16] MEDS ORDERED: BENZOCAINE/MENTHOL (CHLORASEPTIC ) LOZENGE MM PRN (16:48)
[2024-02-16] MEDS ORDERED: LORazepam 1 MG TABLET PO PRN (16:48)
[2024-02-16] MEDS ORDERED: ACETAMINOPHEN 325 MG TABLET (FP) PO PRN (16:48)
[2024-02-16] MEDS ORDERED: NALOXONE (NARCAN) HCL 4 MG/0.1 ML SPRAY NS PRN (16:48)
[2024-02-16] MEDS ORDERED: MAGNESIUM HYDROX 2400MG/30ML ORAL SUSPENSION 30 ML CUP PO PRN (16:48)
[2024-02-16] MEDS ORDERED: BENZONATATE 200 MG CAPSULE PO PRN (16:48)
[2024-02-16] MEDS ORDERED: LOPERAMIDE HCL 2 MG CAPSULE PO PRN (16:48)
[2024-02-16] MEDS ORDERED: diphenhydrAMINE HCL 25 MG CAPSULE (FP) PO ONE (17:15)
[2024-02-16] MEDS ORDERED: LORazepam 2 MG TABLET ONE (17:15)
[2024-02-16] MEDS: LORazepam 2 MG TABLET PO SCH (17:20)
[2024-02-16] MEDS: diphenhydrAMINE HCL 25 MG CAPSULE (FP) PO ONE (17:20)
[2024-02-16 17:57] VITALS: RESP 18
[2024-02-16] MEDS ORDERED: LORazepam 2 MG/ML SDV VIAL ONE (18:43)
[2024-02-16] MEDS: LORazepam 2 MG/ML SDV VIAL IM ONE (18:50)
[2024-02-16 18:58] VITALS: BP 130/78; PULSE 74; TEMP 97.3
[2024-02-16] MEDS: MELATONIN 5 MG TABLETS PO SCH (23:11)
[2024-02-16] MEDS: THIAMINE 100 MG TABLET PO SCH (23:12)
[2024-02-17] MEDS: PRENATAL VITAMINS W/ FOLIC ACID TABLET (FP) PO SCH (10:58)
[2024-02-18] MEDS ORDERED: LORazepam 1 MG TABLET PO SCH (05:00)
[2024-02-19] MEDS ORDERED: LORazepam 0.5 MG TABLET PO PRN
[2024-02-19] MEDS ORDERED: LORazepam 0.5 MG TABLET PO SCH (05:00)
[2024-02-20] MEDS ORDERED: LORazepam 0.5 MG TABLET PO ONE (05:00)
== END 2024-02-17 13:57 | disposition left against medical advice (07) | DRG 770 ==
LOC: YASAS 13:55 → Y6N 16:52
PROVIDERS: ADMIT Allergy & Immunology; ATTEND Surgery
PROC: HZ2ZZZZ Detoxification Services for Substance Abuse Treatment (ICD-10-PCS; principal; 2024-02-16)
DX: F10.230 Alcohol dependence with withdrawal, uncomplicated (principal); F17.210 Nicotine dependence, cigarettes, uncomplicated; F25.9 Schizoaffective disorder, unspecified; F32.A Depression, unspecified; F41.9 Anxiety disorder, unspecified; F43.10 Post-traumatic stress disorder, unspecified; Z21 Asymptomatic human immunodeficiency virus [HIV] infection status; G40.909 Epilepsy, unspecified, not intractable, without status epilepticus; M62.82 Rhabdomyolysis; Z87.19 Personal history of other diseases of the digestive system
CPT/HCPCS: 80305; 80307; 82962

== ENCOUNTER 2024-05-17 17:22 | Inpatient (IN) | payer OTHER ==
[2024-05-17] MEDS ORDERED: LORazepam 2 MG/ML SDV VIAL ONE ×3 (17:44→18:12)
[2024-05-17 18:26] LABS: BASO % 0.8 % (0-2.0); EOS % 0.3 % (0-4.5); HEMATOCRIT 41.6 % (35.4-49); HEMOGLOBIN 13.9 GM/dL (11.7-16.9); MCH 28.6 pg (25.7-33.7); MCHC 33.5 g/dl (32.0-35.9); MEAN CELL VOLUME 85.5 fl (80-96); MEAN PLT VOLUME 7.9 fl (7.5-11.1); MONO % 9.6 % (3.8-10.2); NEUT % 39.3 % (42.8-82.8); PLATELET COUNT 309 10^3/uL (134-434); RBC 4.87 M/mm3 (4.00-5.60); RDW 17.7 % (11.9-15.9); WHITE BLOOD COUNT 4.1 K/mm3 (4.0-10.0)
[2024-05-17] MEDS ORDERED: levETIRAcetam 500 MG/5 ML INJECTION VIAL IVPB ONE (18:49)
[2024-05-17 19:06] LABS: POTASSIUM 5.6 mmol/L (3.5-5.1)
[2024-05-17] MEDS: levETIRAcetam 500 MG/5 ML INJECTION VIAL IVPB ONE (19:06)
[2024-05-17] MEDS: SODIUM CHLORIDE 0.9% 500 ML INFUS.BAG IV ONE (19:06)
[2024-05-17 19:08] LABS: ALBUMIN 4.2 g/dl (3.4-5.0); CALCIUM 8.8 mg/dL (8.5-10.1)
[2024-05-17 19:13] LABS: BILIRUBIN,TOTAL 0.7 mg/dL (0.2-1); TOT PROT 8.6 g/dl (6.4-8.2)
[2024-05-17 19:39] LABS: LACTIC ACID 6.1 mmol/L (0.4-2.0)
[2024-05-17] MEDS ORDERED: ACETAMINOPHEN INJECTION 100 ML ONE (22:11)
[2024-05-17] MEDS ORDERED: MAG HYDROX/AL HYDROX/SIMETH 30 ML UNIT-DOSE CUP ONE (22:11)
[2024-05-17] MEDS ORDERED: diazePAM CARPU-JECT 10 MG/2 ML DISP.SYRIN ONE (22:11)
[2024-05-17] MEDS ORDERED: FAMOTIDINE 20 MG/50 ML IVPB 20 MG/50 ML MG IVPB ONE (22:12)
[2024-05-17] MEDS: ACETAMINOPHEN 1000 MG/100 ML BAG IVPB ONE (22:19)
[2024-05-17] MEDS: diazePAM CARPU-JECT 10 MG/2 ML DISP.SYRIN IVPUSH ONE (22:19)
[2024-05-17] MEDS: FAMOTIDINE 20 MG/50 ML IVPB 20 MG/50 ML MG IVPB ONE (22:19)
[2024-05-17] MEDS: MAG HYDROX/AL HYDROX/SIMETH 30 ML UNIT-DOSE CUP PO ONE (22:42)
[2024-05-17] MEDS: THIAMINE HCL 200 MG/2 ML VIAL IVPB ONE (23:00)
[2024-05-17] MEDS ORDERED: FOLIC ACID 5 MG/1 ML IVPB ONE (23:06)
[2024-05-18] MEDS ORDERED: LORazepam 2 MG/ML SDV VIAL IVPUSH PRN (00:16)
[2024-05-18 00:42] LABS: LACTIC ACID 4.1 mmol/L (0.4-2.0)
[2024-05-18] MEDS: diazePAM CARPU-JECT 10 MG/2 ML DISP.SYRIN IVPUSH ONE (01:01)
[2024-05-18] MEDS ORDERED: DEXAMETHASONE SOD PHOSPHATE 10 MG/1 ML VIAL ONE (01:02)
[2024-05-18] MEDS ORDERED: diazePAM CARPU-JECT 10 MG/2 ML DISP.SYRIN ONE (01:17)
[2024-05-18] MEDS: FOLIC ACID 5 MG/1 ML IVPB ONE (04:20)
[2024-05-18] MEDS ORDERED: LORazepam 1 MG TABLET ONE (05:39)
[2024-05-18] MEDS: LORazepam 1 MG TABLET PO SCH ×2 (05:43→10:45)
[2024-05-18] MEDS: SODIUM CHLORIDE IVPB ONE (05:43)
[2024-05-18] MEDS: FOLIC ACID IVPB ONE (05:43)
[2024-05-18] MEDS: GABAPENTIN 300 MG CAPSULE PO SCH (06:51)
[2024-05-18] MEDS: THIAMINE HCL 200 MG/2 ML VIAL IVPB SCH (06:51)
[2024-05-18 06:56] VITALS: BMI 29.7
[2024-05-18] MEDS: LORazepam 1 MG TABLET PO PRN (07:48)
[2024-05-18] MEDS: SODIUM CHLORIDE 1,000 ML IV SCH (07:49)
[2024-05-18] MEDS: SODIUM CHLORIDE IVPB SCH (09:51)
[2024-05-18] MEDS: FOLIC ACID IVPB SCH (09:51)
[2024-05-18] MEDS: levETIRAcetam 500 MG TABLET (FP) PO SCH (09:51)
[2024-05-18] MEDS: FAMOTIDINE 20 MG TABLET PO SCH (09:51)
[2024-05-18] MEDS: diphenhydrAMINE HCL 25 MG CAPSULE (FP) PO PRN (09:51)
[2024-05-18] MEDS: RIFAXIMIN 550 MG TABLET PO SCH (09:51)
[2024-05-18] MEDS: ENOXAPARIN NA (PORCINE) 40 MG/0.4 ML DISP.SYRIN SQ SCH (09:52)
[2024-05-18] MEDS ORDERED: FOLIC ACID 5 MG/1 ML IVPB SCH (10:00)
[2024-05-18] MEDS ORDERED: BICTEGRAV/EMTRICIT/TENOFOV (BIKTARVY) 50-200-25 MG TABLET PO SCH (10:00)
[2024-05-18] MEDS ORDERED: LORazepam 2 MG/ML SDV VIAL IVPUSH SCH (10:00)
[2024-05-18] MEDS ORDERED: LORazepam 1 MG TABLET PO PRN (10:04)
[2024-05-18] MEDS: ONDANSETRON 4 MG/2 ML VIAL IVPUSH PRN (10:27)
[2024-05-18 12:48] LABS: BASO % 0.8 % (0-2.0); EOS % 0.1 % (0-4.5); HEMATOCRIT 36.7 % (35.4-49); HEMOGLOBIN 12.4 GM/dL (11.7-16.9); LYMPH % 27.6 % (8-40); MCH 28.9 pg (25.7-33.7); MCHC 33.9 g/dl (32.0-35.9); MEAN CELL VOLUME 85.3 fl (80-96); MEAN PLT VOLUME 8.1 fl (7.5-11.1); MONO % 13.9 % (3.8-10.2); NEUT % 57.6 % (42.8-82.8); PLATELET COUNT 244 10^3/uL (134-434); RBC 4.31 M/mm3 (4.00-5.60); RDW 17.6 % (11.9-15.9); WHITE BLOOD COUNT 2.8 K/mm3 (4.0-10.0)
[2024-05-18 13:09] LABS: POTASSIUM 4.1 mmol/L (3.5-5.1)
[2024-05-18 13:12] LABS: ALBUMIN 3.5 g/dl (3.4-5.0); BLOOD UREA NITROGEN 11.4 mg/dL (7-18); CALCIUM 8.2 mg/dL (8.5-10.1); MAGNESIUM 1.9 mg/dL (1.8-2.4)
[2024-05-18 13:14] LABS: CREATININE 0.9 mg/dL (0.55-1.3)
[2024-05-18 13:15] LABS: PHOSPHOROUS 1.9 mg/dL (2.5-4.9)
[2024-05-18 13:17] LABS: BILIRUBIN,TOTAL 1.5 mg/dL (0.2-1); TOT PROT 7.1 g/dl (6.4-8.2)
[2024-05-18] MEDS ORDERED: IBUPROFEN 400 MG TABLET (FP) PO PRN (14:02)
[2024-05-18] MEDS: NAPH,MB-DB/K PH,MBDB POWDER PACKET PO SCH ×2 (15:30→15:48)
[2024-05-18 15:34] LABS: BILIRUBIN,DIRECT 0.4 mg/dL (0.0-0.2)
[2024-05-18] MEDS: MAGNESIUM 2GM/50ML STERILE WATER IVPB IVPB ONE (16:15)
[2024-05-18 18:39] LABS: HIV INTERPRETATION PRESUMPTIVE POSITIVE (NEGATIVE)
[2024-05-18] MEDS: PRAZOSIN HCL 1 MG CAPSULE PO SCH (22:14)
[2024-05-18] MEDS: QUEtiapine FUMARATE 200 MG TABLET PO SCH (22:14)
[2024-05-18] MEDS: LORazepam 2 MG/ML SDV VIAL IVPUSH ONE ×2 (22:48→22:49)
[2024-05-19] MEDS: diphenhydrAMINE HCL 25 MG CAPSULE (FP) PO ONE (01:40)
[2024-05-19] MEDS ORDERED: hydrOXYzine PAMOATE 50 MG CAPSULE (FP) PO ONE (02:47)
[2024-05-19] MEDS: hydrOXYzine PAMOATE 25 MG CAPSULE (FP) PO ONE (03:03)
[2024-05-19] MEDS: LORazepam 1 MG TABLET PO SCH (05:35)
[2024-05-19] MEDS ORDERED: LORazepam 0.5 MG TABLET ONE (08:40)
[2024-05-19] MEDS ORDERED: LORazepam 0.5 MG TABLET PO PRN (08:49)
[2024-05-19 09:15] LABS: INR 1.01 (0.83-1.09)
[2024-05-19 09:28] LABS: HEMATOCRIT 33.1 % (35.4-49); MCH 28.9 pg (25.7-33.7); MCHC 33.2 g/dl (32.0-35.9); PLATELET COUNT 209 10^3/uL (134-434); RBC 3.81 M/mm3 (4.00-5.60); RDW 17.1 % (11.9-15.9)
[2024-05-19 09:53] LABS: MAGNESIUM 1.9 mg/dL (1.8-2.4)
[2024-05-19 10:15] LABS: CALCIUM 8.3 mg/dL (8.5-10.1)
[2024-05-19 10:16] LABS: ALBUMIN 3.1 g/dl (3.4-5.0); BLOOD UREA NITROGEN 11.1 mg/dL (7-18)
[2024-05-19 10:19] LABS: PHOSPHOROUS 2.9 mg/dL (2.5-4.9)
[2024-05-19 10:20] LABS: BILIRUBIN,TOTAL 0.5 mg/dL (0.2-1)
[2024-05-19 10:21] LABS: TOT PROT 6.3 g/dl (6.4-8.2)
[2024-05-19] MEDS: LORazepam 2 MG/ML SDV VIAL IVPUSH PRN (12:19)
[2024-05-19] MEDS: BICTEGRAV/EMTRICIT/TENOFOV (BIKTARVY) 50-200-25 MG TABLET PO SCH (16:52)
[2024-05-19] MEDS: LORazepam 2 MG/ML SDV VIAL IM ONE (21:06)
[2024-05-19] MEDS ORDERED: LORazepam 2 MG/ML SDV VIAL IM ONE (23:00)
[2024-05-20] MEDS ORDERED: LORazepam 0.5 MG TABLET PO PRN
[2024-05-20] MEDS ORDERED: LORazepam 0.5 MG TABLET PO SCH (05:00)
[2024-05-20] MEDS: LORazepam 2 MG/ML SDV VIAL IM ONE ×2 (05:35→10:13)
[2024-05-20] MEDS: LORazepam 1 MG TABLET PO SCH (06:28)
[2024-05-20] MEDS ORDERED: THIAMINE HCL 200 MG/2 ML VIAL IVPB SCH (10:00)
[2024-05-20] MEDS ORDERED: levETIRAcetam 500 MG/5 ML INJECTION VIAL IVPB ONE (10:29)
[2024-05-20] MEDS: levETIRAcetam 500 MG/5 ML INJECTION VIAL IVPB SCH (10:30)
[2024-05-20] MEDS: THIAMINE HCL 200 MG/2 ML VIAL IVPB SCH (11:47)
[2024-05-20 12:14] LABS: BASO % 1.2 % (0-2.0); EOS % 4.3 % (0-4.5); HEMOGLOBIN 12.3 GM/dL (11.7-16.9); LYMPH % 27.7 % (8-40); MCH 28.9 pg (25.7-33.7); MCHC 33.1 g/dl (32.0-35.9); MEAN CELL VOLUME 87.1 fl (80-96); MONO % 11.3 % (3.8-10.2); NEUT % 55.5 % (42.8-82.8); PLATELET COUNT 224 10^3/uL (134-434); RBC 4.25 M/mm3 (4.00-5.60); RDW 17.2 % (11.9-15.9); WHITE BLOOD COUNT 3.6 K/mm3 (4.0-10.0)
[2024-05-20 12:44] LABS: POTASSIUM 4.1 mmol/L (3.5-5.1)
[2024-05-20 12:51] LABS: CALCIUM 9.2 mg/dL (8.5-10.1)
[2024-05-20 12:52] LABS: ALBUMIN 3.5 g/dl (3.4-5.0); BLOOD UREA NITROGEN 9.4 mg/dL (7-18); MAGNESIUM 1.5 mg/dL (1.8-2.4)
[2024-05-20 12:55] LABS: CREATININE 0.8 mg/dL (0.55-1.3); PHOSPHOROUS 3.7 mg/dL (2.5-4.9)
[2024-05-20 12:56] LABS: BILIRUBIN,TOTAL 0.4 mg/dL (0.2-1); TOT PROT 7.2 g/dl (6.4-8.2)
[2024-05-20] MEDS: MAGNESIUM OXIDE 400 MG TABLET (FP) PO ONE (16:13)
[2024-05-20] MEDS: QUEtiapine FUMARATE 100 MG TABLET (FP) PO SCH (21:55)
[2024-05-20] MEDS: LORazepam 2 MG/ML SDV VIAL IVPUSH PRN (22:17)
[2024-05-21] MEDS ORDERED: LORazepam 0.5 MG TABLET PO PRN
[2024-05-21] MEDS ORDERED: LORazepam 0.5 MG TABLET PO ONE (05:00)
[2024-05-21] MEDS ORDERED: LORazepam 0.5 MG TABLET PO SCH (05:00)
[2024-05-21 08:06] LABS: HEMATOCRIT 36.6 % (35.4-49); HEMOGLOBIN 12.3 GM/dL (11.7-16.9); MCH 28.8 pg (25.7-33.7); MCHC 33.7 g/dl (32.0-35.9); MEAN CELL VOLUME 85.5 fl (80-96); PLATELET COUNT 231 10^3/uL (134-434); RBC 4.28 M/mm3 (4.00-5.60); RDW 17.5 % (11.9-15.9); WHITE BLOOD COUNT 3.3 K/mm3 (4.0-10.0)
[2024-05-21 08:32] LABS: POTASSIUM 4.3 mmol/L (3.5-5.1)
[2024-05-21 08:36] LABS: ALBUMIN 3.4 g/dl (3.4-5.0); CALCIUM 9.1 mg/dL (8.5-10.1)
[2024-05-21 08:37] LABS: BLOOD UREA NITROGEN 13.4 mg/dL (7-18); MAGNESIUM 1.7 mg/dL (1.8-2.4)
[2024-05-21 08:40] LABS: PHOSPHOROUS 4.3 mg/dL (2.5-4.9)
[2024-05-21 08:41] LABS: BILIRUBIN,TOTAL 0.3 mg/dL (0.2-1)
[2024-05-21] MEDS: MAGNESIUM OXIDE 400 MG TABLET (FP) PO ONE (09:46)
[2024-05-21] MEDS: ENOXAPARIN NA (PORCINE) 40 MG/0.4 ML DISP.SYRIN SQ SCH (09:46)
[2024-05-21] MEDS: FOLIC ACID IVPB SCH (09:47)
[2024-05-21] MEDS: SODIUM CHLORIDE IVPB SCH (09:47)
[2024-05-21] MEDS: MAGNESIUM 2GM/50ML STERILE WATER IVPB IVPB ONE (10:54)
[2024-05-21] MEDS: THIAMINE HCL 200 MG/2 ML VIAL IVPB SCH (14:35)
[2024-05-21] MEDS: levETIRAcetam 500 MG TABLET (FP) PO SCH (21:41)
[2024-05-21] MEDS: PRAZOSIN HCL 1 MG CAPSULE PO SCH (21:43)
[2024-05-22] MEDS: diphenhydrAMINE HCL 25 MG CAPSULE (FP) PO ONE (00:35)
[2024-05-22 03:08] VITALS: BP 106/73; PULSE 109; TEMP 98.1
[2024-05-22] MEDS ORDERED: LORazepam 0.5 MG TABLET PO ONE (05:00)
[2024-05-22] MEDS ORDERED: BISACODYL 5 MG TABLET.DR (FP) PO ONE (08:15)
[2024-05-22] MEDS: THIAMINE HCL 200 MG/2 ML VIAL IVPB SCH (08:23)
[2024-05-22] MEDS: FOLIC ACID 1 MG TABLET (FP) PO SCH (10:27)
[2024-05-22] MEDS: BICTEGRAV/EMTRICIT/TENOFOV (BIKTARVY) 50-200-25 MG TABLET PO SCH (10:27)
[2024-05-22] MEDS: POLYETHYLENE GLYCOL (HEALTHYLAX) 3350 17 GM PACKET PO SCH (10:27)
[2024-05-22 12:06] VITALS: RESP 16
== END 2024-05-22 15:03 | disposition home or self-care (01) | DRG 775 ==
LOC: JER 17:22 → JERBED 20:15 → J6S 05-18 06:08 → J4W 05-20 16:52
PROVIDERS: ADMIT Internal Medicine; ATTEND Internal Medicine
PROC: 4A10X4Z Monitoring of Central Nervous Electrical Activity, External Approach (ICD-10-PCS; principal; 2024-05-21)
DX: F10.230 Alcohol dependence with withdrawal, uncomplicated (principal); G40.909 Epilepsy, unspecified, not intractable, without status epilepticus; F25.9 Schizoaffective disorder, unspecified; Z21 Asymptomatic human immunodeficiency virus [HIV] infection status; F43.10 Post-traumatic stress disorder, unspecified; E83.42 Hypomagnesemia; K59.00 Constipation, unspecified; E87.20 Acidosis, unspecified; R13.10 Dysphagia, unspecified
CPT/HCPCS: 0241U-QW; 36415; 70450-TC; 71045-TC-FY; 72125-TC; 74018-TC-FY; 80053; 80177; 80307; 82140; 82248; 82550; 82553; 82962; 83036; 83605; 83690; 83735; 84100; 84146; 84484; 85025; 85027; 85610; 86359; 86360; 86850; 86900; 86901; 87389; 93005; 93010; 95816; 99285-25

== ENCOUNTER 2024-05-29 18:04 | Inpatient (IN) | payer OTHER ==
[2024-05-29 18:33] VITALS: BMI 23.6
[2024-05-29] MEDS ORDERED: MAGNESIUM HYDROX 2400MG/30ML ORAL SUSPENSION 30 ML CUP PO PRN (19:00)
[2024-05-29] MEDS ORDERED: DICYCLOMINE HCL 10 MG CAPSULE PO PRN (19:00)
[2024-05-29] MEDS ORDERED: ONDANSETRON *ODT* 4 MG TABLET SL PRN (19:00)
[2024-05-29] MEDS ORDERED: BENZOCAINE/MENTHOL (CHLORASEPTIC ) LOZENGE MM PRN (19:00)
[2024-05-29] MEDS ORDERED: NICOTINE POLACRILEX 2 MG GUM BUC PRN (19:00)
[2024-05-29] MEDS ORDERED: NALOXONE (NARCAN) HCL 4 MG/0.1 ML SPRAY NS PRN (19:00)
[2024-05-29] MEDS ORDERED: BENZONATATE 200 MG CAPSULE PO PRN (19:00)
[2024-05-29] MEDS ORDERED: guaiFENesin 600 MG TABLET.ER (FP) PO PRN (19:00)
[2024-05-29] MEDS ORDERED: MAG HYDROX/AL HYDROX/SIMETH 30 ML UNIT-DOSE CUP PO PRN (19:00)
[2024-05-29] MEDS ORDERED: BISMUTH SUBSALICYLATE 524 MG/30 ML PO PRN (19:00)
[2024-05-29] MEDS ORDERED: IBUPROFEN 400 MG TABLET (FP) PO PRN (19:00)
[2024-05-29] MEDS ORDERED: LOPERAMIDE HCL 2 MG CAPSULE PO PRN (19:00)
[2024-05-29] MEDS ORDERED: POLYETHYLENE GLYCOL (HEALTHYLAX) 3350 17 GM PACKET PO PRN (19:00)
[2024-05-29] MEDS: hydrOXYzine PAMOATE 25 MG CAPSULE (FP) PO PRN (20:32)
[2024-05-29] MEDS: METHOCARBAMOL 500 MG TABLET PO PRN (20:32)
[2024-05-29] MEDS: chlordiazePOXIDE HCL 25 MG CAPSULE PO PRN (20:33)
[2024-05-29 20:52] VITALS: RESP 18
[2024-05-29] MEDS: MELATONIN 5 MG TABLETS PO SCH (22:15)
[2024-05-29] MEDS: IBUPROFEN 600 MG TABLET (FP) PO PRN (22:15)
[2024-05-29] MEDS: THIAMINE 100 MG TABLET PO SCH (22:15)
[2024-05-29] MEDS: levETIRAcetam 500 MG TABLET (FP) PO SCH (22:15)
[2024-05-29] MEDS: chlordiazePOXIDE HCL 25 MG CAPSULE PO SCH (22:16)
[2024-05-30 07:57] VITALS: BP 122/96; PULSE 86; TEMP 97.5
[2024-05-30] MEDS ORDERED: PRENATAL VITAMINS W/ FOLIC ACID TABLET (FP) PO SCH (10:00)
[2024-05-31] MEDS ORDERED: chlordiazePOXIDE HCL 25 MG CAPSULE PO SCH (05:00)
[2024-06-01] MEDS ORDERED: chlordiazePOXIDE HCL 10 MG CAPSULE PO PRN
[2024-06-01] MEDS ORDERED: chlordiazePOXIDE HCL 10 MG CAPSULE PO SCH (05:00)
[2024-06-02] MEDS ORDERED: chlordiazePOXIDE HCL 10 MG CAPSULE PO SCH (05:00)
[2024-06-03] MEDS ORDERED: chlordiazePOXIDE HCL 10 MG CAPSULE PO ONE (05:00)
== END 2024-05-30 07:00 | disposition home or self-care (01) | DRG 773 ==
LOC: YASAS 18:04 → Y6N 19:48
PROVIDERS: ADMIT Allergy & Immunology; ATTEND Allergy & Immunology
PROC: HZ2ZZZZ Detoxification Services for Substance Abuse Treatment (ICD-10-PCS; principal; 2024-05-29)
DX: F11.23 Opioid dependence with withdrawal (principal); F10.230 Alcohol dependence with withdrawal, uncomplicated; F17.210 Nicotine dependence, cigarettes, uncomplicated; F25.9 Schizoaffective disorder, unspecified; F41.9 Anxiety disorder, unspecified; F32.A Depression, unspecified; Z21 Asymptomatic human immunodeficiency virus [HIV] infection status; G40.909 Epilepsy, unspecified, not intractable, without status epilepticus; K21.9 Gastro-esophageal reflux disease without esophagitis; G89.29 Other chronic pain; Z87.19 Personal history of other diseases of the digestive system
CPT/HCPCS: 80305; 80307; 93005; 93010